=== PATIENT | female | born 1970 | race Caucasian/White ===

== ENCOUNTER 2016-09-04 16:02 | Emergency (ER) | payer OTHER ==
[2016-09-04 16:07] VITALS: RESP 16
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
[2016-09-04] MEDS ORDERED: ORPHENADRINE 30 MG/ML 2 ML VIAL IM STA (17:16)
[2016-09-04] MEDS ORDERED: KETOROLAC 60 MG/2 ML VIAL IM STA (17:16)
--- NOTE | 2016-09-04 18:03 | XR ---
Lumbar spine HISTORY: Trauma and pain 3 views of the lumbar spine, comparison to previous exam dated 16 March 2012 No comparisons Lumbar vertebral bodies show preserved height, alignment, and bone mineralization. There is loss of d isc height at L5-S1, L3-4, there is multilevel spondylosis. IMPRESSION: Degenerative disc disease. No acute osseous abnormalities evident.
--- NOTE | 2016-09-04 18:04 | XR ---
Thoracic spine HISTORY: Trauma and pain Correlation to prior exam there are degenerative thousand 12 No significant interval change. There is multilevel spondylosis. Thoracic vertebral bodies show prese rved height and alignment. Disc spaces are maintained IMPRESSION: No acute osseous abnormality. Stable degenerative disc changes.
[2016-09-04 18:35] VITALS: BP 139/71; PULSE 88; TEMP 97.8
== END 2016-09-04 18:00 | disposition home or self-care (01) ==
LOC: EC 16:02
DX: S16.1XXA Strain of muscle, fascia and tendon at neck level, initial encounter (principal); S39.012A Strain of muscle, fascia and tendon of lower back, initial encounter; F41.9 Anxiety disorder, unspecified; M51.36 Other intervertebral disc degeneration, lumbar region; Z88.8 Allergy status to other drugs, medicaments and biological substances; Z79.899 Other long term (current) drug therapy; V49.40XA Driver injured in collision with unspecified motor vehicles in traffic accident, initial encounter
CPT/HCPCS: 99284; 96372 ×2; 72070; 72100; 72125; 70450; J2360; J1885

== ENCOUNTER 2016-11-05 08:42 | Emergency (ER) | payer OTHER ==
[2016-11-05] MEDS ORDERED: KETOROLAC 30 MG/ML 1 ML VIAL IVP STA (09:00)
[2016-11-05] MEDS ORDERED: SODIUM CHLORIDE 0.9% 1,000 ML IV STA (09:00)
--- NOTE | 2016-11-05 09:03 | ED ---
Abdominal Pain HPI - General Chief Complaint: Abdominal Pain Stated Complaint: abdominal pain Time Seen by Provider: 11/05/16 08:55 Source: patient, RN notes reviewed Mode of arrival: ambulatory Limitations: no limitations - History of Present Illness Initial Comments: 46-year-old female presents to the emergency department with a chief complaint of left upper quadrant abdominal pain. Patient states that she has had this stabbing pain to the left upper quadrant for the last few days. Patient states that it hurts if she bends over. Patient states his been no nausea or vomiting. Patient states there is no radiation of the pain. Patient denies any changes in urination. Patient denies her having the pain before. Patient states just a stabbing pain in one spot only. Patient states that it is not have any other quality. Patient states she was concerned because just did not seem to be changing so she thought that she should be evaluated. Patient denies any recent fever, chills, shortness of breath, chest pain, back pain, nausea vomiting, numbness or tingling, dysuria or hematuria, constipation or diarrhea, headaches or visual changes, or any other current symptoms. - Related Data Home Medications Medication Instructions Recorded Confirmed Ergocalciferol [Vitamin D2 50,000 unit PO Q28D 01/31/16 11/05/16 (DRISDOL)] Cetirizine HCl [Zyrtec] 10 mg PO DAILY 11/05/16 11/05/16 Clarithromycin [Biaxin] 500 mg PO BID 11/05/16 11/05/16 Promethazine/Dextromethorphan 5 ml PO BID PRN 11/05/16 11/05/16 [Phenergan DM Syrup] Ranitidine HCl [Zantac] 150 mg PO BID 11/05/16 11/05/16 Previous Rx's Medication Instructions Recorded Ibuprofen [Motrin] 600 mg PO Q6HR PRN #20 tab 11/05/16 Allergies Allergy/AdvReac Type Severity Reaction Status Date / Time fluticasone propionate Allergy Rash/Hives Verified 11/05/16 09:03 [From Advair Diskus] salmeterol xinafoate Allergy Rash/Hives Verified 11/05/16 09:03 [From Advair Diskus] albuterol sulfate AdvReac Passed Out Verified 11/05/16 09:03 [From Ventolin HFA] Review of Systems ROS Statement: Those systems with pertinent positive or pertinent negative responses have been documented in the HPI. ROS Other: All systems not noted in ROS Statement are negative. Past Medical History Past Medical History: Chest Pain / Angina Additional Past Medical History / Comment(s): kidney stones History of Any Multi-Drug Resistant Organisms: None Reported Past Surgical History: Appendectomy, Hysterectomy, Tonsillectomy Past Anesthesia/Blood Transfusion Reactions: No Reported Reaction Past Psychological History: Anxiety Smoking Status: Never smoker Past Alcohol Use History: Rare Past Drug Use History: None Reported General Exam - General Exam Comments Initial Comments: General: The patient is awake and alert, in no distress, and does not appear acutely ill. Eye: Pupils are equal, round and reactive to light, extra-ocular movements are intact; there is normal conjunctiva bilaterally. No signs of icterus. Ears, nose, mouth and throat: There are moist mucous membranes and no oral lesions. Neck: The neck is supple, there is no tenderness. Cardiovascular: There is a regular rate and rhythm. No murmur, rub or gallop is appreciated. Respiratory: Lungs are clear to auscultation, respirations are non-labored, breath sounds are equal. No wheezes, stridor, rales, or rhonchi. Gastrointestinal: Soft, non-distended, 1.10 and her area to the left upper quadrant of the abdomen without masses or organomegaly noted. There is no rebound or guarding present. No CVA tenderness. Bowel sounds are unremarkable. Back: There is no tenderness to palpation in the midline. There is no obvious deformity. No rashes noted. Musculoskeletal: Normal ROM, no tenderness, There is no pedal edema. There is no calf tenderness or swelling. Sensation intact. Pulses equal bilaterally 2+. Neurological: CN II-XII intact, There are no obvious motor or sensory deficits. Coordination appears grossly intact. Speech is normal. Skin: Skin is warm and dry and no rashes or lesions are noted. Psychiatric: Cooperative, appropriate mood & affect, normal judgment. Limitations: no limitations Course Vital Signs 11/05/16 08:52 Temperature 98.9 F Pulse Rate 86 Respiratory 16 Rate Blood Pressure 124/70 O2 Sat by Pulse 97 Oximetry Medical Decision Making - Medical Decision Making 46-year-old female presents the emergency department chief complaint of left upper quadrant abdominal pain. At this time patient's blood work is reviewed and shows no white count patient's x-rays normal. At this time patient was reexamined and she states she's been much better with the medication. We discussed the possible etiologies for her abdominal pain. This time due to the patient's blood work and soft nondistended nontender abdomen on reevaluation we discussed that she needs continue to watch this. We discussed follow-up with her doctor we discussed return parameters. We did discuss possible etiologies for this as well as expected outcomes. Patient stated that she understood all her questions have been answered. She will be discharged. - Lab Data Result diagrams: 11/05/16 09:25 11/05/16 09:25 Lab Results 11/05/16 11/05/16 11/05/16 Range/Units 09:25 09:25 09:25 WBC 6.8 (3.8-10.6) k/uL RBC 4.03 (3.80-5.40) m/uL Hgb 12.4 (11.4-16.0) gm/dL Hct 36.1 (34.0-46.0) % MCV 89.5 (80.0-100.0) fL MCH 30.7 (25.0-35.0) pg MCHC 34.3 (31.0-37.0) g/dL RDW 14.9 (11.5-15.5) % Plt Count 209 (150-450) k/uL Neutrophils % 68 % Lymphocytes % 23 % Monocytes % 5 % Eosinophils % 1 % Basophils % 1 % Neutrophils # 4.6 (1.3-7.7) k/uL Lymphocytes # 1.6 (1.0-4.8) k/uL Monocytes # 0.3 (0-1.0) k/uL Eosinophils # 0.1 (0-0.7) k/uL Basophils # 0.0 (0-0.2) k/uL Sodium 143 (137-145) mmol/L Potassium 4.3 (3.5-5.1) mmol/L Chloride 106 (98-107) mmol/L Carbon Dioxide 25 (22-30) mmol/L Anion Gap 12 mmol/L BUN 11 (7-17) mg/dL Creatinine 0.69 (0.52-1.04) mg/dL Est GFR (MDRD) Af Amer >60 (>60 ml/min/1.73 sqM) Est GFR (MDRD) Non-Af >60 (>60 ml/min/1.73 sqM) Glucose 107 H (74-99) mg/dL Calcium 8.8 (8.4-10.2) mg/dL Total Bilirubin 0.5 (0.2-1.3) mg/dL AST 27 (14-36) U/L ALT 39 (9-52) U/L Alkaline Phosphatase 85 (38-126) U/L Total Protein 7.1 (6.3-8.2) g/dL Albumin 3.8 (3.5-5.0) g/dL Amylase 51 (30-110) U/L Lipase 80 (23-300) U/L Urine Color Yellow Urine Appearance Clear (Clear) Urine pH 5.5 (5.0-8.0) Ur Specific [place] 1.015 (1.001-1.035) Urine Protein Negative (Negative) Urine Glucose (UA) Negative (Negative) Urine Ketones Negative (Negative) Urine Blood Negative (Negative) Urine Nitrate Negative (Negative) Urine Bilirubin Negative (Negative) Urine Urobilinogen <2.0 (<2.0) mg/dL Ur Leukocyte Esterase Negative (Negative) - Radiology Data Radiology results: report reviewed, image reviewed Disposition Clinical Impression: Abdominal pain, left upper quadrant Disposition: HOME SELF-CARE Condition: Stable Instructions: Abdominal Pain (ED) Additional Instructions: Please use medication as discussed. Please follow up with family doctor if symptoms have not improved over the next two days. Please return to the emergency room if your symptoms increase or worsen or for any other concerns. Prescriptions: Ibuprofen [Motrin] 600 mg PO Q6HR PRN #20 tab PRN Reason: Pain Referrals: Krish Navas MD [STAFF PHYSICIAN] - 1-2 days Time of Disposition: 10:08
[2016-11-05 09:36] LABS: Basophils % (A) 1 %; CHCM 33.7; Eosinophils # (A) 0.1 k/uL (0-0.7); Eosinophils % (A) 1 %; HCT 36.1 % (34.0-46.0); HDW 3.12; HGB 12.4 gm/dL (11.4-16.0); Luc # (Auto) 0.15; Luc % (Auto) 2; Lymphocytes # (A) 1.6 k/uL (1.0-4.8); Lymphocytes % (A) 23 %; MCH 30.7 pg (25.0-35.0); MCHC 34.3 g/dL (31.0-37.0); MCV 89.5 fL (80.0-100.0); Mean Platelet Volume 8.4; Monocytes # (A) 0.3 k/uL (0-1.0); Monocytes % (A) 5 %; Neutrophils # (A) 4.6 k/uL (1.3-7.7); Neutrophils % (A) 68 %; RBC 4.03 m/uL (3.80-5.40); RDW 14.9 % (11.5-15.5); WBC 6.8 k/uL (3.8-10.6); WBC (Perox) 7.03
[2016-11-05 09:41] LABS: Appearance,Urine Clear (Clear); Bilirubin,Urine Negative (Negative); Glucose,Urine (UA) Negative (Negative); Ketones,Urine Negative (Negative); Leukocyte Esterase,Urine Negative (Negative); Nitrite,Urine Negative (Negative); PH, Urine 5.5 (5.0-8.0); Protein,Urine Negative (Negative); Specific Gravity,Urine 1.015 (1.001-1.035); UA Billing (MACRO vs. MICRO) CHEM; Urobilinogen,Urine <2.0 mg/dL (<2.0)
--- NOTE | 2016-11-05 09:48 | XR ---
EXAMINATION TYPE: XR abdomen 2V DATE OF EXAM: 11/05/2016 9:40 AM COMPARISON: 10/12/2013 HISTORY: Left-sided upper and lower quadrant pain TECHNIQUE: One view abdominal series FINDINGS: The osseous structures are intact. The bowel gas pattern is nonspecific. Lung bases are clear. Arth ropathy of the hip joints noted. IMPRESSION: 1. Nonspecific abdomen.
[2016-11-05 09:51] LABS: ALT 39 U/L (9-52); AST 27 U/L (14-36); Alkaline Phosphatase 85 U/L (38-126); Amylase 51 U/L (30-110); Anion Gap 12 mmol/L; Blood Urea Nitrogen 11 mg/dL (7-17); Calcium 8.8 mg/dL (8.4-10.2); Carbon Dioxide 25 mmol/L (22-30); Chloride 106 mmol/L (98-107); Glucose 107 mg/dL (74-99); Non-African American GFR(MDRD) >60 (>60 ml/min/1.73 sqM); Potassium 4.3 mmol/L (3.5-5.1); Sodium 143 mmol/L (137-145); Total Bilirubin 0.5 mg/dL (0.2-1.3); Total Protein 7.1 g/dL (6.3-8.2)
[2016-11-05 10:26] VITALS: BP 138/58; PULSE 75; RESP 18; TEMP 99.5
== END 2016-11-05 10:23 | disposition home or self-care (01) ==
LOC: EC 08:42
DX: R10.12 Left upper quadrant pain (principal); Z87.442 Personal history of urinary calculi; Z79.899 Other long term (current) drug therapy; Z88.8 Allergy status to other drugs, medicaments and biological substances
CPT/HCPCS: 99284 ×2; 96374 ×2; 96361 ×2; 36415; 80053; 82150; 83690; 85025; 81003; 74020; J1885

== ENCOUNTER 2017-03-16 22:51 | Emergency (ER) | payer OTHER ==
[2017-03-16 22:58] VITALS: BP 145/84; PULSE 92; RESP 18; TEMP 98.5
--- NOTE | 2017-03-16 23:10 | ED ---
ENT HPI - General Chief complaint: ENT Stated complaint: Sore throat, bug bite Time Seen by Provider: 03/16/17 23:00 Source: patient, RN notes reviewed Mode of arrival: ambulatory Limitations: no limitations - History of Present Illness Initial comments: 47-year-old female presents emergency Department with chief complaint sore throat, bump on her right thigh region. Patient states her sore throat started 4 days ago states that she's had some hot cold flashes no known fever. Patient was seen by PCP placed on amoxicillin but she did not know why. Patient denies any ear pain but states pain radiates up towards her years from her throat. Denies any difficulty swallowing denies cough, chest congestion, sinus congestion. Patient states that she felt a small bump on her right posterior thigh region started one to days ago states that it she scratched it felt like a pimple and now states that his more swollen. Patient has no history of MRSA. - Related Data Home Medications Medication Instructions Recorded Confirmed Ergocalciferol [Vitamin D2 50,000 unit PO Q28D 01/31/16 03/16/17 (DRISDOL)] Clarithromycin [Biaxin] 500 mg PO BID 11/05/16 03/16/17 Ranitidine HCl [Zantac] 150 mg PO BID 11/05/16 03/16/17 Previous Rx's Medication Instructions Recorded Cephalexin [Keflex] 500 mg PO Q6HR #40 cap 03/16/17 Allergies Allergy/AdvReac Type Severity Reaction Status Date / Time fluticasone propionate Allergy Rash/Hives Verified 03/16/17 22:57 [From Advair Diskus] salmeterol xinafoate Allergy Rash/Hives Verified 03/16/17 22:57 [From Advair Diskus] albuterol sulfate AdvReac Passed Out Verified 03/16/17 22:57 [From Ventolin HFA] Review of Systems ROS Statement: Those systems with pertinent positive or pertinent negative responses have been documented in the HPI. ROS Other: All systems not noted in ROS Statement are negative. Past Medical History Past Medical History: Chest Pain / Angina Additional Past Medical History / Comment(s): kidney stones History of Any Multi-Drug Resistant Organisms: None Reported Past Surgical History: Appendectomy, Hysterectomy, Tonsillectomy Past Anesthesia/Blood Transfusion Reactions: No Reported Reaction Past Psychological History: Anxiety Smoking Status: Never smoker Past Alcohol Use History: Rare Past Drug Use History: None Reported General Exam Limitations: no limitations General appearance: alert, in no apparent distress Head exam: Present: atraumatic, normocephalic, normal inspection Eye exam: Present: normal appearance, PERRL, EOMI. Absent: scleral icterus, conjunctival injection, periorbital swelling ENT exam: Present: mucous membranes moist, TM's normal bilaterally, normal external ear exam. Absent: normal exam, normal oropharynx (Erythematous posterior pharynx, tonsillectomy) Neck exam: Present: normal inspection, full ROM. Absent: tenderness, meningismus, lymphadenopathy Respiratory exam: Present: normal lung sounds bilaterally. Absent: respiratory distress, wheezes, rales, rhonchi, stridor Cardiovascular Exam: Present: regular rate, normal rhythm, normal heart sounds. Absent: systolic murmur, diastolic murmur, rubs, gallop, clicks Skin exam: Present: warm, dry, intact, normal color, other (Right posterior thigh there is a 170 area of erythema with central open lesion). Absent: rash Course Vital Signs 03/16/17 22:55 Temperature 98.5 F Pulse Rate 92 Respiratory 18 Rate Blood Pressure 145/84 O2 Sat by Pulse 96 Oximetry Medical Decision Making - Medical Decision Making 47-year-old female presented for sore throat, right leg lesion. Patient appears not infected wound she'll be placed on Keflex as this will cover for her possible strep infection. Patient agrees this plan and will be discharged. Disposition Clinical Impression: Acute viral pharyngitis, Infected wound Disposition: HOME SELF-CARE Condition: Stable Instructions: Pharyngitis (ED) Additional Instructions: Please return to the Emergency Department if symptoms worsen or any other concerns. Prescriptions: Cephalexin [Keflex] 500 mg PO Q6HR #40 cap Referrals: Dleia Valero MD [Primary Care Provider] - 1-2 days Time of Disposition: 23:10
== END 2017-03-16 23:29 | disposition home or self-care (01) ==
LOC: EC 22:51
DX: J02.8 Acute pharyngitis due to other specified organisms (principal); S71.101A Unspecified open wound, right thigh, initial encounter; Z79.899 Other long term (current) drug therapy; Z88.8 Allergy status to other drugs, medicaments and biological substances; X58.XXXA Exposure to other specified factors, initial encounter
CPT/HCPCS: 99282

== ENCOUNTER 2017-09-05 14:44 | Emergency (ER) | payer OTHER ==
[2017-09-05] MEDS ORDERED: methylPREDNISolone SOD SUCCI 125 MG/2 ML VIAL IV STA (15:01)
[2017-09-05] MEDS ORDERED: ACETAMINOPHEN TAB 500 MG TAB PO STA (15:01)
[2017-09-05] MEDS ORDERED: PROMETHAZ-COD 6.25-10 MG/5 ML 5 ML CUP PO STA (15:21)
[2017-09-05] MEDS ORDERED: SODIUM CHLORIDE 0.9% 1,000 ML IV ONE (15:22)
--- NOTE | 2017-09-05 15:25 | ED ---
URI HPI - General Chief Complaint: Upper Respiratory Infection Stated Complaint: SOB Time Seen by Provider: 09/05/17 14:52 Source: patient, RN notes reviewed, old records reviewed Mode of arrival: ambulatory Limitations: no limitations - History of Present Illness Initial Comments: This is a 47-year-old female presents emergency Department chief complaint of upper respiratory congestion and significant cough the past 2 days. She saw her primary care provider. Patient was started on Levaquin, and steroids. She reports that her symptoms continue to persist that she called the primary care provider. They told her to come here. She reports that she feels very short of breath with walking short distances. She reports she is ALLERGIC to all types of breathing treatments. She denies any recent fever or chills. She reports that he has no abdominal pain, nausea or vomiting. She denies any specific chest pain but occasionally report some numbness and tingling down her left arm. She denies any other symptoms including headache, vision changes, down pain, nausea, vomiting, changes in bowel habits. - Related Data Home Medications Medication Instructions Recorded Confirmed Citalopram Hydrobromide [CeleXA] 20 mg PO HS 09/05/17 09/05/17 LORazepam [Ativan] 0.5 mg PO DAILY 09/05/17 09/05/17 Levofloxacin [Levaquin] 500 mg PO DAILY 09/05/17 09/05/17 predniSONE See Taper PO DIRECTED 09/05/17 09/05/17 Previous Rx's Medication Instructions Recorded Hjev-Sccy-Nwn 6.25-5-10Mg/5Ml 5 ml PO TID #100 ml 09/05/17 [Phenergan VC with Codeine] predniSONE 50 mg PO DAILY #5 tablet 09/05/17 Allergies Allergy/AdvReac Type Severity Reaction Status Date / Time fluticasone propionate Allergy Rash/Hives Verified 09/05/17 15:25 [From Advair Diskus] salmeterol xinafoate Allergy Rash/Hives Verified 09/05/17 15:25 [From Advair Diskus] albuterol sulfate AdvReac Passed Out Verified 09/05/17 15:25 [From Ventolin HFA] Review of Systems ROS Statement: Those systems with pertinent positive or pertinent negative responses have been documented in the HPI. ROS Other: All systems not noted in ROS Statement are negative. Past Medical History Past Medical History: Chest Pain / Angina Additional Past Medical History / Comment(s): kidney stones History of Any Multi-Drug Resistant Organisms: None Reported Past Surgical History: Appendectomy, Hysterectomy, Tonsillectomy Past Anesthesia/Blood Transfusion Reactions: No Reported Reaction Past Psychological History: Anxiety Smoking Status: Never smoker Past Alcohol Use History: Rare Past Drug Use History: None Reported General Exam - General Exam Comments Initial Comments: His is a 47-year-old female. No distress. Limitations: no limitations General appearance: alert, in no apparent distress Head exam: Present: atraumatic, normocephalic, normal inspection Eye exam: Present: normal appearance, PERRL, EOMI. Absent: scleral icterus, conjunctival injection, periorbital swelling ENT exam: Present: normal exam, mucous membranes moist Neck exam: Present: normal inspection. Absent: tenderness, meningismus, lymphadenopathy Respiratory exam: Present: normal lung sounds bilaterally, other (Patient has significant dry cough.). Absent: respiratory distress, wheezes, rales, rhonchi , stridor Cardiovascular Exam: Present: regular rate, normal rhythm, normal heart sounds. Absent: systolic murmur, diastolic murmur, rubs, gallop, clicks GI/Abdominal exam: Present: soft, normal bowel sounds. Absent: distended, tenderness, guarding, rebound, rigid Extremities exam: Present: normal inspection, full ROM, normal capillary refill. Absent: tenderness, pedal edema, joint swelling, calf tenderness Back exam: Present: normal inspection Neurological exam: Present: alert, oriented X3, CN II-XII intact Psychiatric exam: Present: normal affect, normal mood Course Vital Signs 09/05/17 09/05/17 09/05/17 14:46 16:05 17:59 Temperature 97.7 F 98.0 F Pulse Rate 97 84 84 Respiratory 18 18 18 Rate Blood Pressure 151/74 129/80 132/81 O2 Sat by Pulse 99 93 L 94 L Oximetry Medical Decision Making - Medical Decision Making This is a 47-year-old female presents emergency Department chief complaint of upper respiratory congestion the past 2 days. She saw her primary care provider yesterday. Patient was started on Levaquin, and steroids. She reports that her symptoms continue to persist that she called the primary care provider. They told her to come here. She reports that she feels very short of breath with walking short distances. She reports she is ALLERGIC to all types of breathing treatments. Pt given IV fluids, labs obtained. CXR is reviewed and normal. No significant wheezing, however latoya has very persistent dry hacking cough. Mild leukocytosis noted. Patient Given IV rocpehin and advised to continue levaquin. Discharged with cough syrup, and increased steroids. Discussed follow up with PCP. Patient EKG and troponin are normal, if there was cardiac related symptoms likely would have been positive at this time due to length of pt symptoms. Patient agrees for treatment planand will comply. - Lab Data Result diagrams: 09/05/17 15:48 09/05/17 15:48 Lab Results 09/05/17 09/05/17 09/05/17 Range/Units 15:48 15:48 15:48 WBC 13.8 H (3.8-10.6) k/uL RBC 4.13 (3.80-5.40) m/uL Hgb 12.2 (11.4-16.0) gm/dL Hct 37.9 (34.0-46.0) % MCV 91.6 (80.0-100.0) fL MCH 29.6 (25.0-35.0) pg MCHC 32.3 (31.0-37.0) g/dL RDW 15.8 H (11.5-15.5) % Plt Count 245 (150-450) k/uL Neutrophils % 77 % Lymphocytes % 16 % Monocytes % 5 % Eosinophils % 1 % Basophils % 0 % Neutrophils # 10.6 H (1.3-7.7) k/uL Lymphocytes # 2.3 (1.0-4.8) k/uL Monocytes # 0.7 (0-1.0) k/uL Eosinophils # 0.1 (0-0.7) k/uL Basophils # 0.1 (0-0.2) k/uL Sodium 142 (137-145) mmol/L Potassium 4.3 (3.5-5.1) mmol/L Chloride 107 (98-107) mmol/L Carbon Dioxide 24 (22-30) mmol/L Anion Gap 11 mmol/L BUN 13 (7-17) mg/dL Creatinine 0.84 (0.52-1.04) mg/dL Est GFR (MDRD) Af Amer >60 (>60 ml/min/1.73 sqM) Est GFR (MDRD) Non-Af >60 (>60 ml/min/1.73 sqM) Glucose 121 H (74-99) mg/dL Calcium 9.5 (8.4-10.2) mg/dL Troponin I <0.012 (0.000-0.034) ng/mL Influenza Type A RNA (Not Detectd) Influenza Type B (PCR) (Not Detectd) 09/05/17 Range/Units 16:20 WBC (3.8-10.6) k/uL RBC (3.80-5.40) m/uL Hgb (11.4-16.0) gm/dL Hct (34.0-46.0) % MCV (80.0-100.0) fL MCH (25.0-35.0) pg MCHC (31.0-37.0) g/dL RDW (11.5-15.5) % Plt Count (150-450) k/uL Neutrophils % % Lymphocytes % % Monocytes % % Eosinophils % % Basophils % % Neutrophils # (1.3-7.7) k/uL Lymphocytes # (1.0-4.8) k/uL Monocytes # (0-1.0) k/uL Eosinophils # (0-0.7) k/uL Basophils # (0-0.2) k/uL Sodium (137-145) mmol/L Potassium (3.5-5.1) mmol/L Chloride (98-107) mmol/L Carbon Dioxide (22-30) mmol/L Anion Gap mmol/L BUN (7-17) mg/dL Creatinine (0.52-1.04) mg/dL Est GFR (MDRD) Af Amer (>60 ml/min/1.73 sqM) Est GFR (MDRD) Non-Af (>60 ml/min/1.73 sqM) Glucose (74-99) mg/dL Calcium (8.4-10.2) mg/dL Troponin I (0.000-0.034) ng/mL Influenza Type A RNA Not Detected (Not Detectd) Influenza Type B (PCR) Not Detected (Not Detectd) 09/05/17 18:21 EKG shows sinus rhythm. Ventricular rate of 99 bpm. IL interval 140 ms. QRS duration 82 ms. QT QTc is 356/[address] elevation or T wave inversion. No to return ventricular arrhythmias. - Radiology Data Radiology results: report reviewed Chest x-ray was reviewed and negative for any acute process. Disposition Clinical Impression: Bronchitis Disposition: HOME SELF-CARE Condition: Good Instructions: Acute Bronchitis (ED) Additional Instructions: Patient advised to follow-up with primary care provider. Return to the emergency department if any alarming signs or symptoms occur. Patient should use the steroids and continue your antibiotics. Prescriptions: predniSONE 50 mg PO DAILY #5 tablet Jtoy-Qtdf-Xgj 6.25-5-10Mg/5Ml [Phenergan VC with Codeine] 5 ml PO TID #100 ml Referrals: Delia Valero MD [Primary Care Provider] - 1-2 days Time of Disposition: 17:26
--- NOTE | 2017-09-05 15:54 | XR ---
EXAMINATION TYPE: XR chest 2V DATE OF EXAM: 09/05/2017 COMPARISON: 05/13/2016 TECHNIQUE: PA and lateral views submitted. HISTORY: Cough and congestion FINDINGS: The lungs are clear and there is no pneumothorax, pleural effusion, or focal pneumonia. Hypertrophi c and degenerative change of the spine. IMPRESSION: 1. No acute process.
[2017-09-05 15:56] LABS: Basophils # (A) 0.1 k/uL (0-0.2); Basophils % (A) 0 %; Eosinophils # (A) 0.1 k/uL (0-0.7); Eosinophils % (A) 1 %; HCT 37.9 % (34.0-46.0); HGB 12.2 gm/dL (11.4-16.0); Lymphocytes # (A) 2.3 k/uL (1.0-4.8); Lymphocytes % (A) 16 %; MCH 29.6 pg (25.0-35.0); MCHC 32.3 g/dL (31.0-37.0); MCV 91.6 fL (80.0-100.0); Mean Platelet Volume 7.8; Monocytes # (A) 0.7 k/uL (0-1.0); Monocytes % (A) 5 %; Neutrophils # (A) 10.6 k/uL (1.3-7.7); Neutrophils % (A) 77 %; Platelet Count 245 k/uL (150-450); RBC 4.13 m/uL (3.80-5.40); RDW 15.8 % (11.5-15.5); WBC 13.8 k/uL (3.8-10.6)
[2017-09-05 16:05] LABS: Anion Gap 11 mmol/L; Blood Urea Nitrogen 13 mg/dL (7-17); Calcium 9.5 mg/dL (8.4-10.2); Carbon Dioxide 24 mmol/L (22-30); Chloride 107 mmol/L (98-107); Glucose 121 mg/dL (74-99); Potassium 4.3 mmol/L (3.5-5.1); Sodium 142 mmol/L (137-145)
[2017-09-05 16:42] VITALS: PULSE 84; RESP 18
[2017-09-05] MEDS ORDERED: cefTRIAXone IN SWFI 1,000 MG/10 ML SYRINGE IVP STA (17:27)
[2017-09-05 18:00] VITALS: BP 132/81; TEMP 98
== END 2017-09-05 18:18 | disposition home or self-care (01) ==
LOC: EC 14:44
DX: J40 Bronchitis, not specified as acute or chronic (principal); F41.9 Anxiety disorder, unspecified; Z88.8 Allergy status to other drugs, medicaments and biological substances; Z79.52 Long term (current) use of systemic steroids; Z79.899 Other long term (current) drug therapy
CPT/HCPCS: 99284; 96374; 96375; 96361 ×2; 36415; 93005; 80048; 84484; 85025; 87502; 71046; J2930; J0696

== ENCOUNTER → 2017-10-31 | Outpatient (CLI) | payer OTHER ==
--- NOTE | 2017-10-31 08:24 | US ---
EXAMINATION TYPE: US abdomen complete DATE OF EXAM: 10/31/2017 COMPARISON: CT CLINICAL HISTORY: R10.12 left upper quad pain; patient stated has generalized abdominal pain after me als; exam is technically limited due to patient body habitus at 262lbs, HT 5'7; on medication for anx iety EXAM MEASUREMENTS: Liver Length: 24.2 cm Gallbladder Wall: 0.2 cm CBD: 0.3 cm Spleen: 12.4 cm Right Kidney: 12.3 x 6.9 x 4.4 cm Left Kidney: 11.3 x 5.1 x 5.4 cm Pancreas: Tail obscured by overlying bowel gas Liver: fatty as is hyperechoic to right renal cortex Gallbladder: wnl Evidence for sonographic Cullen's sign: No CBD: wnl Spleen: wnl; accessory spleen noted superiorly on images #68 and #70. Right Kidney: No hydronephrosis or masses seen Left Kidney: No hydronephrosis or masses seen Upper IVC: wnl Abd Aorta: wnl Visualized liver is heterogeneously hyperechoic in appearance. Evaluation for focal masses is subopti mal due to the heterogeneity. IMPRESSION: Probable fatty infiltration of liver noted. No significant acute finding is seen to accou nt for patient's symptoms.
== END | disposition home or self-care (01) ==
LOC: RADUSWWP 06:52
PROVIDERS: ATTEND Internal Medicine
DX: R10.12 Left upper quadrant pain (principal)
CPT/HCPCS: 76700

== ENCOUNTER 2017-12-29 14:28 | Emergency (ER) | payer OTHER ==
[2017-12-29] MEDS ORDERED: KETOROLAC 30 MG/ML 1 ML VIAL IM STA (15:46)
--- NOTE | 2017-12-29 15:51 | ED ---
General Adult HPI - General Chief complaint: Upper Respiratory Infection Stated complaint: Hurts to breathe Time Seen by Provider: 12/29/17 15:27 Source: patient Mode of arrival: ambulatory Limitations: no limitations - History of Present Illness Initial comments: 47-year-old female patient presents to the emergency department today for complaints of back pain and upper respiratory symptoms. Patient states that for the last week she has been having pain to her entire back from her neck all the way down to her buttocks. She states that the pain increases when she moves , coughs, or takes a deep breath. She states that the pain is been worsening despite use of ibuprofen. She states that she feels like she has to cough but can't because it hurts so much. She states that she does have a sore throat with nasal congestion. She denies any shortness of breath, chest pain, fever, chills, nausea, vomiting, sweats, dizziness, or weakness. Denies any history of back pain. She denies any radiation of the pain down her legs. Denies any numbness or tingling. Denies any saddle anesthesia. Denies any loss of bowel or bladder control. Denies any injuries or increase in physical activity. She denies any recent travel or long car rides. Denies any use of hormonal contraceptives. Patient denies any recent rash, abdominal pain, diarrhea, constipation, numbness, tingling, hematuria, dysuria, urinary urgency, urinary frequency, headache, visual changes, or any other complaints. - Related Data Home Medications Medication Instructions Recorded Confirmed Citalopram Hydrobromide [CeleXA] 20 mg PO HS 09/05/17 09/05/17 LORazepam [Ativan] 0.5 mg PO DAILY 09/05/17 09/05/17 Previous Rx's Medication Instructions Recorded Cyclobenzaprine [Flexeril] 10 mg PO TID #15 tab 12/29/17 Ibuprofen [Motrin] 600 mg PO Q8HR PRN #30 tab 12/29/17 Allergies Allergy/AdvReac Type Severity Reaction Status Date / Time amoxicillin Allergy Unknown Verified 12/29/17 15:17 fluticasone propionate Allergy Rash/Hives Verified 12/29/17 15:17 [From Advair Diskus] salmeterol xinafoate Allergy Rash/Hives Verified 12/29/17 15:17 [From Advair Diskus] albuterol sulfate AdvReac Passed Out Verified 12/29/17 15:17 [From Ventolin HFA] Review of Systems ROS Statement: Those systems with pertinent positive or pertinent negative responses have been documented in the HPI. ROS Other: All systems not noted in ROS Statement are negative. Past Medical History Past Medical History: Chest Pain / Angina Additional Past Medical History / Comment(s): kidney stones History of Any Multi-Drug Resistant Organisms: None Reported Past Surgical History: Appendectomy, Hysterectomy, Tonsillectomy Past Anesthesia/Blood Transfusion Reactions: No Reported Reaction Past Psychological History: Anxiety Smoking Status: Never smoker Past Alcohol Use History: Rare Past Drug Use History: None Reported General Exam Limitations: no limitations General appearance: alert, in no apparent distress, other (This is a well- developed, well-nourished adult female patient in no acute distress. Vital signs upon presentation are temperature 98.3F, pulse 94, respirations 18, blood pressure 118/71, pulse ox 96% on room air.) Eye exam: Present: normal appearance, PERRL, EOMI. Absent: scleral icterus, conjunctival injection, periorbital swelling ENT exam: Present: normal exam, normal oropharynx, mucous membranes moist Neck exam: Present: normal inspection. Absent: tenderness, meningismus, lymphadenopathy Respiratory exam: Present: normal lung sounds bilaterally. Absent: respiratory distress, wheezes, rales, rhonchi, stridor Cardiovascular Exam: Present: regular rate, normal rhythm, normal heart sounds. Absent: systolic murmur, diastolic murmur, rubs, gallop, clicks GI/Abdominal exam: Present: soft, normal bowel sounds. Absent: distended, tenderness, guarding, rebound, rigid Back exam: Present: normal inspection. Absent: tenderness Neurological exam: Present: alert, oriented X3, CN II-XII intact Psychiatric exam: Present: normal affect, normal mood Skin exam: Present: warm, dry, intact, normal color. Absent: rash Course Vital Signs 12/29/17 12/29/17 15:13 15:26 Temperature 98.3 F Pulse Rate 94 Respiratory 18 18 Rate Blood Pressure 118/71 O2 Sat by Pulse 96 Oximetry EKG Findings - EKG Comments: EKG Findings:: EKG obtained at 1715 shows normal sinus rhythm with a ventricular rate of 78, DE interval 150, QRS duration 88, QT 408, QTC 465. No evidence of ST elevation or depression. Medical Decision Making - Medical Decision Making 47-year-old female patient presented to the emergency department today for complaints of back pain. She reported increase in the pain with movement or deep breathing. Patient is also reporting upper respiratory symptoms including cough, sore throat, and nasal congestion. Physical examination is unremarkable. The back is nontender to palpation. Patient is neurologically intact. Vital signs are stable. EKG shows normal sinus rhythm. Chest x-ray showed no acute cardiopulmonary process. I did discuss findings with the patient and informed her symptoms are most likely musculoskeletal in nature. We will trial anti-inflammatory and Flexeril. She is instructed to follow-up with her primary care physician for recheck as soon as possible. Return parameters were discussed in detail. She verbalizes understanding and agrees with this plan. - Radiology Data Radiology results: report reviewed, image reviewed Two-view x-ray of the chest shows no focal airspace opacity, pleural effusion, or pneumothorax seen. The cardiac silhouette size is within normal limits. The osseous structures are intact. Impression by Dr. Martinez shows no acute cardiopulmonary process. Disposition Clinical Impression: Back pain, Upper respiratory infection Disposition: HOME SELF-CARE Condition: Good Instructions: Upper Respiratory Infection (ED), Back Pain (ED) Additional Instructions: Take medications as directed. Follow-up with your primary care physician for recheck as soon as possible. Return here immediately for any new, worsening, or concerning symptoms. Prescriptions: Cyclobenzaprine [Flexeril] 10 mg PO TID #15 tab Ibuprofen [Motrin] 600 mg PO Q8HR PRN #30 tab PRN Reason: Pain Is patient prescribed a controlled substance at d/c from ED?: No Referrals: Delia Valero MD [Primary Care Provider] - 1-2 days Time of Disposition: 17:34
--- NOTE | 2017-12-29 16:35 | XR ---
EXAMINATION TYPE: XR chest 2V DATE OF EXAM: 12/29/2017 COMPARISON: September 05, 2017 HISTORY: Shortness of breath TECHNIQUE: Frontal and lateral views of the chest are obtained. FINDINGS: There is no focal air space opacity, pleural effusion, or pneumothorax seen. The cardiac silhouette size is within normal limits. The osseous structures are intact. IMPRESSION: No acute cardiopulmonary process.
[2017-12-29 17:54] VITALS: BP 126/83; PULSE 73; RESP 16; TEMP 99.2
== END 2017-12-29 17:53 | disposition home or self-care (01) ==
LOC: EC 14:28
DX: J06.9 Acute upper respiratory infection, unspecified (principal); M54.9 Dorsalgia, unspecified; F41.9 Anxiety disorder, unspecified; Z79.899 Other long term (current) drug therapy; Z88.0 Allergy status to penicillin; Z88.8 Allergy status to other drugs, medicaments and biological substances; Z90.89 Acquired absence of other organs
CPT/HCPCS: 99284; 96372; 93005; 71046; J1885

== ENCOUNTER 2018-01-07 12:25 | Emergency (ER) | payer OTHER ==
[2018-01-07 12:33] VITALS: BP 130/87; PULSE 98; RESP 18; TEMP 99.1
--- NOTE | 2018-01-07 12:43 | ED ---
Upper Extremity HPI - General Chief Complaint: Extremity Injury, Upper Stated Complaint: Right hand injury Time Seen by Provider: 01/07/18 12:38 Source: patient, RN notes reviewed Mode of arrival: ambulatory Limitations: no limitations - History of Present Illness Initial Comments: This is a 47-year-old female who presents to the emergency department with chief complaint of right hand injury. Patient states approximately 30 minutes prior to arrival she became angry and punched her closet door. She complains of pain in in the knuckles and along the lateral aspect of her right hand. Denies any other injuries or trauma. Denies numbness or tingling. Denies recent fevers or chills, shortness breath or chest pain, abdominal pain, nausea or vomiting, dizziness or headache. - Related Data Home Medications Medication Instructions Recorded Confirmed Citalopram Hydrobromide [CeleXA] 20 mg PO HS 09/05/17 09/05/17 LORazepam [Ativan] 0.5 mg PO DAILY 09/05/17 09/05/17 Previous Rx's Medication Instructions Recorded Cyclobenzaprine [Flexeril] 10 mg PO TID #15 tab 12/29/17 Ibuprofen [Motrin] 600 mg PO Q8HR PRN #30 tab 12/29/17 Allergies Allergy/AdvReac Type Severity Reaction Status Date / Time amoxicillin Allergy Unknown Verified 01/07/18 12:33 fluticasone propionate Allergy Rash/Hives Verified 01/07/18 12:33 [From Advair Diskus] salmeterol xinafoate Allergy Rash/Hives Verified 01/07/18 12:33 [From Advair Diskus] albuterol sulfate AdvReac Passed Out Verified 01/07/18 12:33 [From Ventolin HFA] Review of Systems ROS Statement: Those systems with pertinent positive or pertinent negative responses have been documented in the HPI. ROS Other: All systems not noted in ROS Statement are negative. Past Medical History Past Medical History: Chest Pain / Angina Additional Past Medical History / Comment(s): kidney stones History of Any Multi-Drug Resistant Organisms: None Reported Past Surgical History: Appendectomy, Hysterectomy, Tonsillectomy Past Anesthesia/Blood Transfusion Reactions: No Reported Reaction Past Psychological History: Anxiety Smoking Status: Never smoker Past Alcohol Use History: Rare Past Drug Use History: None Reported General Exam - General Exam Comments Initial Comments: General: Awake and alert, well-developed; in no apparent distress. Calm and cooperative. Daughter is at bedside. HEENT: Head atraumatic, normocephalic. Pupils are equal, round and reactive to light. Extraocular movements intact. Oropharynx moist without erythema or exudate. Neck: Supple. Normal ROM. Cardiovascular: Regular rate and rhythm. No murmurs, rubs or gallops. Chest symmetrical. Respiratory: Lungs clear to auscultation bilaterally. No wheezes, rales or rhonchi. Normal respiratory effort with no use of accessory muscles. Musculoskeletal: Normal range of motion of the right hand. No significant swelling or ecchymosis noted. There is tenderness along the fourth and fifth metacarpals and MCP joints of the right hand. Sensation is intact. Radial pulses are 2+ equal and palpable bilaterally. Skin: [place], warm and dry without rashes or lesions. Neurological: Alert and oriented x3. CN II-XII grossly intact. Speech is fluent and answers are appropriate. No focal neuro deficits. Psychiatric: Normal mood and affect. No overt signs of depression or anxiety noted. Limitations: no limitations Course Vital Signs 01/07/18 12:31 Temperature 99.1 F Pulse Rate 98 Respiratory 18 Rate Blood Pressure 130/87 O2 Sat by Pulse 96 Oximetry Medical Decision Making - Medical Decision Making This is a [age] female who presents to the emergency department chief complaint of right hand injury. Patient states that prior to arrival she punched a closet. Tenderness along the fourth and fifth metacarpals, however no significant swelling or ecchymosis noted. X-ray was obtained and revealed no acute fractures or dislocations. An Antonio bandage was placed and patient tolerated well without complication. She is neurovascularly intact. Recommended rest, ice, ibuprofen and to follow-up with her primary care provider. Patient is in agreement with plan and voices understanding. All questions were answered. She'll be discharged home at this time. - Radiology Data Radiology results: report reviewed X-ray right hand impression: No definite acute fracture or dislocation. If symptoms persist, follow-up study in 7-10 days would be suggested. Disposition Clinical Impression: Hand contusion Disposition: HOME SELF-CARE Condition: Good Instructions: Contusion in Adults (ED) Additional Instructions: Please rest, ice and take ibuprofen as needed. Please avoid wearing the Antonio bandage at night while asleep. Please follow up with primary care provider within 1-2 days. Return to emergency department if symptoms should worsen or any concerns arise. Is patient prescribed a controlled substance at d/c from ED?: No Referrals: Delia Valero MD [Primary Care Provider] - 1-2 days Time of Disposition: 13:12
--- NOTE | 2018-01-07 12:56 | XR ---
EXAMINATION TYPE: XR hand complete RT DATE OF EXAM: 01/07/2018 COMPARISON: NONE HISTORY: pain, punched wall TECHNIQUE: Three views are submitted. FINDINGS: The osseous structures are intact. The joint spaces are preserved and there is no acute fracture or dislocation. IMPRESSION: 1. No definite acute fracture or dislocation if symptoms persist, follow-up study in 7 to 10 days wo uld be suggested
== END 2018-01-07 13:18 | disposition home or self-care (01) ==
LOC: EC 12:25
DX: S60.221A Contusion of right hand, initial encounter (principal); F41.9 Anxiety disorder, unspecified; Z79.899 Other long term (current) drug therapy; Z88.0 Allergy status to penicillin; Z88.8 Allergy status to other drugs, medicaments and biological substances; W22.01XA Walked into wall, initial encounter
CPT/HCPCS: 99283

== ENCOUNTER 2018-01-23 09:38 | Day surgery (SDC) | payer OTHER ==
[2018-01-22 11:39] VITALS: BMI 40.7
[~2018-01-23 09:38] MED LIST: LACTATED RINGERS 1,000 ML IV SCH; LIDOCAINE 1% 20 ML VIAL (10MG/ML) FOR IV START INTRADERMA PRN
[2018-01-23 10:03] VITALS: TEMP 98.9
[2018-01-23] MEDS ORDERED: LIDOCAINE 1% INJ 10MG/ML (20 ML MDV) ONE (11:25)
[2018-01-23] MEDS ORDERED: PROPOFOL 10 MG/ML 20 ML VIAL IV ONE (11:25)
--- NOTE | 2018-01-23 12:18 | P.PCN ---
Date of Procedure: 01/23/18 Procedure(s) Performed: Procedure: 1. Esophagogastroduodenoscopy and biopsy. 2. Colonoscopy and biopsy. Preoperative diagnosis: Epigastric pain and change in bowel habits. Postoperative diagnosis: 1. Small sliding hiatal hernia with no obvious esophagitis or complaints reflux disease. 2. Mild antral gastritis. 3. Mild sigmoid diverticulosis. 4. Low-grade internal hemorrhoids without bleeding at the time of this exam. 5. Biopsies obtained from the duodenum, antrum, esophagus and right colon. Preparation: HalfLytely prep. Sedation: Was provided by anesthesia. Brief clinical history: The patient is a 48-year-old female who was evaluated in our office earlier this month for abdominal pains of several years duration. Rare episodes of nausea but no vomiting rare heartburn. She has 2-3 bowel movements daily of and loose in consistency and she had intermittent rectal bleeding. No other alarm symptoms. Procedure: With the patient on her left lateral decubitus position and after informed consent and adequate sedation, I passed the Olympus-GIF 160 video upper endoscope through the cricopharyngeus down the esophagus. GE junction was around 39 cm from the incisors and there was a small sliding hiatal hernia but no obvious esophagitis or complicated reflux disease. The endoscope was then passed into the stomach which was insufflated with air and inspected in detail including the retroflex view in the cardia. There was some mottling and erythema in the antrum but no ulcers or erosions. Pyloric channel, duodenal bulb, post bulbar area and descending duodenum showed minimal erythema. I obtained biopsies from the duodenum, antrum and esophagus then the endoscope was withdrawn and I proceeded with the colonoscopy. Perianal area did not show any fissures or fistulas. There were no masses felt on digital rectal examination. The Olympus CFQ 160L video colonoscope was then inserted in the rectum in the usual fashion and advanced to the cecum. There were few diverticular orifices scattered noted in the sigmoid with no evidence of acute diverticulitis or strictures. Low-grade internal hemorrhoids were noted with no evidence of bleeding. I obtained biopsies from the right colon because of the diarrhea before the endoscope was withdrawn. The mucosa overall appeared healthy. No polyps or tumors were seen. The patient tolerated the procedure well. Plan: The patient was reassured. Will await biopsy results. Discussed dietary measures and local care for hemorrhoids. She will follow-up in the office as planned and we would keep you updated on her progress.
[2018-01-23 12:26] VITALS: BP 124/74; PULSE 81; RESP 14
== END 2018-01-23 13:04 | disposition home or self-care (01) ==
LOC: ORWHC2ENDO 09:38
DX: K29.50 Unspecified chronic gastritis without bleeding (principal); K44.9 Diaphragmatic hernia without obstruction or gangrene; B96.81 Helicobacter pylori [H. pylori] as the cause of diseases classified elsewhere; K57.32 Diverticulitis of large intestine without perforation or abscess without bleeding; K64.8 Other hemorrhoids; K21.0 Gastro-esophageal reflux disease with esophagitis; Z88.8 Allergy status to other drugs, medicaments and biological substances; Z88.0 Allergy status to penicillin; F39 Unspecified mood [affective] disorder; Z87.442 Personal history of urinary calculi
CPT/HCPCS: 88305; 88342; 45380; 43239; J2001; J2704

== ENCOUNTER 2018-03-23 11:39 | Emergency (ER) | payer OTHER ==
[2018-03-23 11:54] VITALS: RESP 18
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
--- NOTE | 2018-03-23 12:59 | XR ---
EXAMINATION TYPE: XR hand complete RT , 4 VIEWS DATE OF EXAM ORDERED: 03/23/2018 HISTORY: Pain. COMPARISON: None. FINDINGS: The fingers are flexed in all projections. This makes assessment of the joint spaces diffi cult. No fracture or dislocation is seen. IMPRESSION: NO ACUTE OSSEOUS LESION.
--- NOTE | 2018-03-23 13:02 | XR ---
EXAMINATION TYPE: XR wrist complete RT , 4 VIEWS DATE OF EXAM ORDERED: 03/23/2018 HISTORY: Pain. COMPARISON: None. FINDINGS: The trapezoid is superimposed over the trapezium in all projections. Based on this finding , it would be difficult to exclude a dislocation. No definite fracture is seen. IMPRESSION: SUPERIMPOSITION OF THE TRAPEZOID OVER THE TRAPEZIUM IN ALL PROJECTIONS MAKING IT IMPOSSIBLE TO EXCLUD E A DISLOCATION. A CT SCAN OF THE REST OF THE SUGGESTED.
--- NOTE | 2018-03-23 14:24 | CT ---
EXAMINATION TYPE: CT hand RT wo con DATE OF EXAM: 03/23/2018 COMPARISON: None HISTORY: Patient complains of pain post trauma. CT DLP: 107.2 mGycm Automated exposure control for dose reduction was used. FINDINGS: Multiple axial sections were obtained from the mid carpus to the tips of the fingers with no contrast . I see no fracture nor dislocation. There are no erosions. There are minor degenerative changes in the joints. There is no evidence of soft tissue mass. The metacarpals are intact. IMPRESSION: NO ACUTE ABNORMALITY OF THE RIGHT HAND.
--- NOTE | 2018-03-23 14:26 | CT ---
EXAMINATION TYPE: CT wrist RT wo con DATE OF EXAM: 03/23/2018 COMPARISON: None HISTORY: Patient complains of pain post trauma. CT DLP: 107.2 mGycm Automated exposure control for dose reduction was used. FINDINGS: Multiple axial sections were obtained from the distal radius to the proximal metacarpals with no cont rast. THE CARPAL BONES ARE INTACT. JOINT SPACES ARE FAIRLY NORMAL. THERE ARE NO EROSIONS. I SEE NO BONY SAUNDRA TRUCTIVE PROCESS. THERE IS NO EVIDENCE OF A SOFT TISSUE MASS. THERE IS MILD SUBCUTANEOUS EDEMA OVER T HE ANTERIOR MEDIAL CARPUS. IMPRESSION: Mild soft tissue swelling over the anterior and medial carpus. No fracture seen.
[2018-03-23 14:47] VITALS: BP 136/75; PULSE 84; TEMP 97.8
== END 2018-03-23 14:45 | disposition home or self-care (01) ==
LOC: EC 11:39
DX: S69.91XA Unspecified injury of right wrist, hand and finger(s), initial encounter (principal); F41.9 Anxiety disorder, unspecified; Z79.899 Other long term (current) drug therapy; Z88.0 Allergy status to penicillin; Z88.8 Allergy status to other drugs, medicaments and biological substances; W22.01XA Walked into wall, initial encounter
CPT/HCPCS: 29125; 99284

== ENCOUNTER 2019-05-22 13:45 | Emergency (ER) | payer OTHER ==
[2019-05-22 13:55] VITALS: BP 109/68; PULSE 104; RESP 18; TEMP 98.6
[2019-05-22] MEDS ORDERED: Acetaminophen-Codeine 300-30mg TAB PO STA (14:06)
--- NOTE | 2019-05-22 14:45 | XR ---
Right wrist and right hand, right forearm HISTORY: Trauma and pain 3 views of the right hand, 4 views of the right wrist, 2 views of the right forearm submitted. Bone mineralization, joint spaces and alignment are maintained. Arthropathy noted within the hand at the interphalangeal joint of the first digit, radiocarpal joint and right elbow. Question a small oss ific density dorsal to the wrist appears well-corticated. No evident joint effusion. IMPRESSION: No definite fracture or dislocation of the right hand, right wrist, right forearm. Small ossific density at the dorsal aspect of the wrist could be related to triquetral fracture of indeterm inate age. Correlate for point tenderness.
[2019-05-22] MEDS ORDERED: ACET/COD 300 MG/30 MG STARTER PACK 6 TAB BTL PO STA (15:14)
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
== END 2019-05-22 15:21 | disposition home or self-care (01) ==
LOC: EC 13:45
DX: S63.501A Unspecified sprain of right wrist, initial encounter (principal); F41.9 Anxiety disorder, unspecified; Z79.899 Other long term (current) drug therapy; Z88.0 Allergy status to penicillin; Z88.8 Allergy status to other drugs, medicaments and biological substances; W22.8XXA Striking against or struck by other objects, initial encounter
CPT/HCPCS: 29125; 99284

== ENCOUNTER 2019-09-11 16:20 | Emergency (ER) | payer BC ==
[2019-09-11 16:40] VITALS: BP 137/85; PULSE 94; TEMP 99.2
[2019-09-11 17:34] VITALS: RESP 18
--- NOTE | 2019-09-11 17:52 | XR ---
EXAMINATION TYPE: XR chest 2V DATE OF EXAM: 09/11/2019 COMPARISON: 12/29/2017 HISTORY: Chest pain. Cough TECHNIQUE: FINDINGS: Heart and mediastinum are normal. Lungs are clear. Diaphragm is normal. Bony thorax appears normal. Pulmonary vascularity is normal. IMPRESSION: Normal chest. No change.
--- NOTE | 2019-09-11 18:05 | ED ---
URI HPI - General Chief Complaint: Upper Respiratory Infection Stated Complaint: Cough/congestion Time Seen by Provider: 09/11/19 17:19 Source: patient Mode of arrival: ambulatory Limitations: no limitations - History of Present Illness Initial Comments: Patient is a 41-year-old female presenting to emergency Department with complaints of a cough 2-3 weeks. Patient states she is having progressive shortness of breath and producing yellow to brown colored phlegm. Patient admits to chills however no fever, nausea, vomiting. She has no history of a sthma or COPD. She has no other complaints at this time. Upon arrival to ER, vital signs are stable. - Related Data Home Medications Medication Instructions Recorded Confirmed Citalopram Hydrobromide [CeleXA] 20 mg PO HS 09/05/17 01/23/18 LORazepam [Ativan] 0.5 mg PO DAILY PRN 09/05/17 01/23/18 Oxybutynin Chloride [Ditropan] 5 mg PO BID 01/22/18 01/23/18 Phentermine HCl [Adipex P] 15 mg PO DAILY 01/22/18 01/23/18 Previous Rx's Medication Instructions Recorded Azithromycin [Zithromax Z-pack] 0 mg PO DIRECTED #1 pack 09/11/19 methylPREDNISolone [Medrol Dose 4 mg PO DIRECTED #1 pack 09/11/19 Pack] Allergies Allergy/AdvReac Type Severity Reaction Status Date / Time amoxicillin Allergy Anaphylaxis Verified 05/22/19 13:55 fluticasone propionate Allergy Rash/Hives Verified 05/22/19 13:55 [From Advair Diskus] salmeterol xinafoate Allergy Rash/Hives Verified 05/22/19 13:55 [From Advair Diskus] albuterol sulfate AdvReac Passed Out Verified 05/22/19 13:55 [From Ventolin HFA] Review of Systems ROS Statement: Those systems with pertinent positive or pertinent negative responses have been documented in the HPI. ROS Other: All systems not noted in ROS Statement are negative. Past Medical History Past Medical History: GERD/Reflux Additional Past Medical History / Comment(s): kidney stones History of Any Multi-Drug Resistant Organisms: None Reported Past Surgical History: Appendectomy, Hysterectomy, Tonsillectomy Additional Past Surgical History / Comment(s): partial hysterectomy Past Anesthesia/Blood Transfusion Reactions: No Reported Reaction Past Psychological History: Anxiety Smoking Status: Never smoker Past Alcohol Use History: None Reported Past Drug Use History: None Reported - Past Family History Father Family Medical History: No Reported History General Exam - General Exam Comments Initial Comments: GENERAL: Well-appearing, well-nourished and in no acute distress. HEAD: Atraumatic, normocephalic. EYES: Pupils equal round and reactive to light, extraocular movements intact, sclera anicteric, conjunctiva are normal. ENT: TMs normal, nares patent, oropharynx clear without exudates. Moist mucous membranes. NECK: Normal range of motion, supple without lymphadenopathy or JVD. LUNGS: Breath sounds clear to auscultation bilaterally and equal. No wheezes rales or rhonchi. HEART: Regular rate and rhythm without murmurs, rubs or gallops. ABDOMEN: Soft, nontender, normoactive bowel sounds. No guarding, no rebound. No masses appreciated. : Deferred EXTREMITIES: Normal range of motion, no pitting or edema. No clubbing or cyanosis. NEUROLOGICAL: Normal speech, normal gait. PSYCH: Normal mood, normal affect. SKIN: Warm, Dry, normal turgor, no rashes or lesions noted. Limitations: no limitations Course Vital Signs 09/11/19 09/11/19 16:37 17:31 Temperature 99.2 F Pulse Rate 94 Respiratory 19 18 Rate Blood Pressure 137/85 O2 Sat by Pulse 95 Oximetry Medical Decision Making - Medical Decision Making Patient is a 49-year-old female presenting with a cough 3 weeks. Vital signs are stable today. Chest X-ray reveals no acute changes. I discussed these findings with the patient and given her length of symptoms patient will be treated with azithromycin as well as round of steroids. She is in agreement this plan of care. Return parameters were discussed with the patient she verbalized understanding. Patient will follow up with PCP as symptoms persist. Disposition Clinical Impression: Cough, Bronchitis Disposition: HOME SELF-CARE Condition: Stable Instructions (If sedation given, give patient instructions): Acute Bronchitis (ED) Additional Instructions: Please return to the Emergency Department if symptoms worsen or any other concerns. Take antibiotic and steroid as prescribed. Follow-up with PCP if symptoms persist. Prescriptions: methylPREDNISolone [Medrol Dose Pack] 4 mg PO DIRECTED #1 pack Azithromycin [Zithromax Z-pack] 0 mg PO DIRECTED #1 pack Is patient prescribed a controlled substance at d/c from ED?: No Referrals: None,Stated [Primary Care Provider] - 1-2 days
== END 2019-09-11 18:15 | disposition home or self-care (01) ==
LOC: EC 16:20
DX: J40 Bronchitis, not specified as acute or chronic (principal); F41.9 Anxiety disorder, unspecified; Z88.0 Allergy status to penicillin; Z88.8 Allergy status to other drugs, medicaments and biological substances; Z79.899 Other long term (current) drug therapy; Z90.89 Acquired absence of other organs
CPT/HCPCS: 71046; 99284

== ENCOUNTER 2019-09-13 10:35 | Emergency (ER) | payer BC ==
[2019-09-13 10:42] VITALS: TEMP 98.3
[2019-09-13] MEDS ORDERED: ACETAMINOPHEN TAB 500 MG TAB PO STA (10:58)
[2019-09-13] MEDS ORDERED: methylPREDNISolone SOD SUCCI 125 MG/2 ML VIAL IV STA (10:58)
[2019-09-13] MEDS ORDERED: guaiFENesin-DM 100-10MG/5ML 10 ML CUP PO STA (10:59)
[2019-09-13] MEDS ORDERED: SODIUM CHLORIDE 0.9% 1,000 ML IV ONE (10:59)
--- NOTE | 2019-09-13 11:14 | ED ---
General Adult HPI - General Chief complaint: Recheck/Abnormal Lab/Rx Stated complaint: Congestion Time Seen by Provider: 09/13/19 10:52 Source: patient, RN notes reviewed, old records reviewed Mode of arrival: ambulatory Limitations: no limitations - History of Present Illness Initial comments: Pat is a 49-year-old female, nonsmoker. She presents today with 3 weeks of cough congestion. Patient was seen in the emergency department 2 days ago diagn osed with bronchitis. She was initiated on Medrol Dosepak and azithromycin. Patient reports that she's had worsening cough congestion since that time. She reports history of sick contacts with positive RSV for her grandchildren. Patient states that she's had some chills denies any specific fever. Patient relates that she's had no specific chest pain. She does report that she is short of breath with miniminal exertion. - Related Data Home Medications Medication Instructions Recorded Confirmed Citalopram Hydrobromide [CeleXA] 20 mg PO HS 09/05/17 01/23/18 LORazepam [Ativan] 0.5 mg PO DAILY PRN 09/05/17 01/23/18 Oxybutynin Chloride [Ditropan] 5 mg PO BID 01/22/18 01/23/18 Phentermine HCl [Adipex P] 15 mg PO DAILY 01/22/18 01/23/18 Previous Rx's Medication Instructions Recorded Azithromycin [Zithromax Z-pack] 0 mg PO DIRECTED #1 pack 09/11/19 methylPREDNISolone [Medrol Dose 4 mg PO DIRECTED #1 pack 09/11/19 Pack] guaiFENesin-DM 100-10MG/5ML 10 ml PO QID #120 ml 09/13/19 [Robitussin DM] predniSONE 50 mg PO DAILY #5 tablet 09/13/19 Allergies Allergy/AdvReac Type Severity Reaction Status Date / Time amoxicillin Allergy Anaphylaxis Verified 05/22/19 13:55 fluticasone propionate Allergy Rash/Hives Verified 05/22/19 13:55 [From Advair Diskus] salmeterol xinafoate Allergy Rash/Hives Verified 05/22/19 13:55 [From Advair Diskus] albuterol sulfate AdvReac Passed Out Verified 05/22/19 13:55 [From Ventolin HFA] Review of Systems ROS Statement: Those systems with pertinent positive or pertinent negative responses have been documented in the HPI. ROS Other: All systems not noted in ROS Statement are negative. Past Medical History Past Medical History: GERD/Reflux Additional Past Medical History / Comment(s): kidney stones History of Any Multi-Drug Resistant Organisms: None Reported Past Surgical History: Appendectomy, Hysterectomy, Tonsillectomy Additional Past Surgical History / Comment(s): partial hysterectomy Past Anesthesia/Blood Transfusion Reactions: No Reported Reaction Past Psychological History: Anxiety Smoking Status: Never smoker Past Alcohol Use History: None Reported Past Drug Use History: None Reported - Past Family History Father Family Medical History: No Reported History General Exam - General Exam Comments Initial Comments: 49-year-old female. Alert and oriented. No distress. Limitations: no limitations General appearance: alert, in no apparent distress Head exam: Present: atraumatic, normocephalic, normal inspection Eye exam: Present: normal appearance, PERRL, EOMI. Absent: scleral icterus, conjunctival injection, periorbital swelling ENT exam: Present: normal exam, mucous membranes moist Neck exam: Present: normal inspection. Absent: tenderness, meningismus, lymphadenopathy Respiratory exam: Present: normal lung sounds bilaterally. Absent: respiratory distress, wheezes, rales, rhonchi, stridor Cardiovascular Exam: Present: regular rate, normal rhythm, normal heart sounds. Absent: systolic murmur, diastolic murmur, rubs, gallop, clicks GI/Abdominal exam: Present: soft, normal bowel sounds. Absent: distended, tenderness, guarding, rebound, rigid Extremities exam: Present: normal inspection, full ROM, normal capillary refill. Absent: tenderness, pedal edema, joint swelling, calf tenderness Back exam: Present: normal inspection Neurological exam: Present: alert, oriented X3, CN II-XII intact Psychiatric exam: Present: normal affect, normal mood Skin exam: Present: warm, dry, intact, normal color. Absent: rash Course Vital Signs 09/13/19 09/13/19 10:39 12:00 Temperature 98.3 F Pulse Rate 99 Respiratory 22 20 Rate Blood Pressure 150/89 O2 Sat by Pulse 96 Oximetry Medical Decision Making - Medical Decision Making 41-year-old female presents with worsening cough for the past few days. She is treated for bronchitis emergency department days ago. Lung sounds are relatively clear. No significant wheezing or diminished lung sounds. She does have a cough. Patient's vital signs are stable. EKG shows no acute changes. Lab work included white blood cell count were unremarkable. At this time Patient given Robitussin-DM. I discussed that her chest x-ray continues to be normalpneumonia. Patient will have her steroids and have a higher level prednisone for the next few days and advise using a cough syrup. Patient will continue azithromycin. All questions answered return parameters were discussed. She was given IV Solu-Medrol and IV Rocephin at this time. - Lab Data Result diagrams: 09/13/19 11:10 09/13/19 11:10 Lab Results 09/13/19 09/13/19 09/13/19 Range/Units 11:10 11:10 11:10 WBC 10.2 (3.8-10.6) k/uL RBC 4.41 (3.80-5.40) m/uL Hgb 12.9 (11.4-16.0) gm/dL Hct 38.3 (34.0-46.0) % MCV 86.9 (80.0-100.0) fL MCH 29.1 (25.0-35.0) pg MCHC 33.5 (31.0-37.0) g/dL RDW 13.7 (11.5-15.5) % Plt Count 213 (150-450) k/uL Neutrophils % 76 % Lymphocytes % 17 % Monocytes % 4 % Eosinophils % 1 % Basophils % 0 % Neutrophils # 7.8 H (1.3-7.7) k/uL Lymphocytes # 1.8 (1.0-4.8) k/uL Monocytes # 0.4 (0-1.0) k/uL Eosinophils # 0.1 (0-0.7) k/uL Basophils # 0.0 (0-0.2) k/uL Sodium 143 (137-145) mmol/L Potassium 3.5 (3.5-5.1) mmol/L Chloride 109 H (98-107) mmol/L Carbon Dioxide 25 (22-30) mmol/L Anion Gap 9 mmol/L BUN 11 (7-17) mg/dL Creatinine 0.61 (0.52-1.04) mg/dL Est GFR (CKD-EPI)AfAm >90 (>60 ml/min/1.73 sqM) Est GFR (CKD-EPI)NonAf >90 (>60 ml/min/1.73 sqM) Glucose 109 H (74-99) mg/dL Calcium 9.2 (8.4-10.2) mg/dL Troponin I (0.000-0.034) ng/mL Influenza Type A RNA Not Detected (Not Detectd) Influenza Type B (PCR) Not Detected (Not Detectd) 09/13/19 Range/Units 11:10 WBC (3.8-10.6) k/uL RBC (3.80-5.40) m/uL Hgb (11.4-16.0) gm/dL Hct (34.0-46.0) % MCV (80.0-100.0) fL MCH (25.0-35.0) pg MCHC (31.0-37.0) g/dL RDW (11.5-15.5) % Plt Count (150-450) k/uL Neutrophils % % Lymphocytes % % Monocytes % % Eosinophils % % Basophils % % Neutrophils # (1.3-7.7) k/uL Lymphocytes # (1.0-4.8) k/uL Monocytes # (0-1.0) k/uL Eosinophils # (0-0.7) k/uL Basophils # (0-0.2) k/uL Sodium (137-145) mmol/L Potassium (3.5-5.1) mmol/L Chloride (98-107) mmol/L Carbon Dioxide (22-30) mmol/L Anion Gap mmol/L BUN (7-17) mg/dL Creatinine (0.52-1.04) mg/dL Est GFR (CKD-EPI)AfAm (>60 ml/min/1.73 sqM) Est GFR (CKD-EPI)NonAf (>60 ml/min/1.73 sqM) Glucose (74-99) mg/dL Calcium (8.4-10.2) mg/dL Troponin I <0.012 (0.000-0.034) ng/mL Influenza Type A RNA (Not Detectd) Influenza Type B (PCR) (Not Detectd) 09/13/19 13:26 EKG is negative for any acute abdomen or maladies. Normal EKG noted. Ventricular rate of 77 bpm. WI interval is 160 ms. QRS duration is 90 ms. QT QTc is 46/459 ms. - Radiology Data Radiology results: report reviewed Chest x-ray is normal. No acute changes. Disposition Clinical Impression: Bronchitis Disposition: HOME SELF-CARE Condition: Good Instructions (If sedation given, give patient instructions): Acute Bronchitis (ED) Additional Instructions: Please use medication as discussed. Please follow up with family doctor if symptoms have not improved over the next two days. Please return to the emergency room if your symptoms increase or worsen or for any other concerns. Prescriptions: predniSONE 50 mg PO DAILY #5 tablet guaiFENesin-DM 100-10MG/5ML [Robitussin DM] 10 ml PO QID #120 ml Is patient prescribed a controlled substance at d/c from ED?: No Referrals: None,Stated [Primary Care Provider] - 1-2 days Sumeet Mike [STAFF PHYSICIAN] - 1-2 days Time of Disposition: 13:24
[2019-09-13 11:46] LABS: African American GFR (CKD) >90 (>60 ml/min/1.73 sqM); Anion Gap 9 mmol/L; Blood Urea Nitrogen 11 mg/dL (7-17); Calcium 9.2 mg/dL (8.4-10.2); Carbon Dioxide 25 mmol/L (22-30); Chloride 109 mmol/L (98-107); Glucose 109 mg/dL (74-99); Non-African American GFR(CKD) >90 (>60 ml/min/1.73 sqM); Potassium 3.5 mmol/L (3.5-5.1); Sodium 143 mmol/L (137-145)
--- NOTE | 2019-09-13 11:46 | XR ---
EXAMINATION TYPE: XR chest 2V DATE OF EXAM: 09/13/2019 HISTORY: cough. REFERENCE: Previous study dated 09/11/2019. FINDINGS: Lungs remain clear. Pleural space are clear. The heart is not enlarged. IMPRESSION: NORMAL CHEST.
[2019-09-13 12:13] LABS: Basophils % (A) 0 %; Eosinophils # (A) 0.1 k/uL (0-0.7); Eosinophils % (A) 1 %; HCT 38.3 % (34.0-46.0); HGB 12.9 gm/dL (11.4-16.0); Lymphocytes # (A) 1.8 k/uL (1.0-4.8); Lymphocytes % (A) 17 %; MCH 29.1 pg (25.0-35.0); MCHC 33.5 g/dL (31.0-37.0); MCV 86.9 fL (80.0-100.0); Mean Platelet Volume 8.1; Monocytes # (A) 0.4 k/uL (0-1.0); Monocytes % (A) 4 %; Neutrophils # (A) 7.8 k/uL (1.3-7.7); Neutrophils % (A) 76 %; Platelet Count 213 k/uL (150-450); RBC 4.41 m/uL (3.80-5.40); RDW 13.7 % (11.5-15.5); WBC 10.2 k/uL (3.8-10.6)
[2019-09-13] MEDS ORDERED: cefTRIAXone IN SWFI 1,000 MG/10 ML SYRINGE IVP STA (12:23)
[2019-09-13 13:46] VITALS: BP 141/76; PULSE 87; RESP 16
== END 2019-09-13 13:44 | disposition home or self-care (01) ==
LOC: EC 10:35
DX: J40 Bronchitis, not specified as acute or chronic (principal); F41.9 Anxiety disorder, unspecified; Z88.0 Allergy status to penicillin; Z88.8 Allergy status to other drugs, medicaments and biological substances; Z79.899 Other long term (current) drug therapy; Z90.89 Acquired absence of other organs; Z20.89 Contact with and (suspected) exposure to other communicable diseases
CPT/HCPCS: 99284; 96374; 96375; 96361; 36415; 93005; 80048; 84484; 85025; 87502; 71046; J2930; J0696

== ENCOUNTER 2020-01-26 11:41 | Emergency (ER) | payer BC ==
[2020-01-26 12:17] VITALS: BP 116/60; PULSE 96; RESP 20; TEMP 98.5
[2020-01-26] MEDS ORDERED: KETOROLAC 30 MG/ML 1 ML VIAL IM STA (12:29)
--- NOTE | 2020-01-26 12:32 | ED ---
Lower Extremity Injury HPI - General Chief Complaint: Extremity Injury, Lower Stated Complaint: Rt Knee pain Time Seen by Provider: 01/26/20 12:19 Source: patient Mode of arrival: ambulatory Limitations: no limitations - History of Present Illness Initial Comments: Patient is a 50-year-old female with history of right knee pain presenting to the emergency department with a chief complaint of right knee pain. Patient reports many years ago she injured her right knee after she fell down stairs. States about 2 weeks ago with no signs of direct trauma, she began to develop pain and swelling in the medial and anterior aspect of the right knee. States there is limited range of motion with flexion past 45. Denies any ecchymotic changes or erythema. States there is pain with inhalation. Reports applying ice compress with alternating Tylenol and Motrin with minimal improvement of symptoms. - Related Data Home Medications Medication Instructions Recorded Confirmed Citalopram Hydrobromide [CeleXA] 20 mg PO HS 09/05/17 01/23/18 LORazepam [Ativan] 0.5 mg PO DAILY PRN 09/05/17 01/23/18 Oxybutynin Chloride [Ditropan] 5 mg PO BID 01/22/18 01/23/18 Phentermine HCl [Adipex P] 15 mg PO DAILY 01/22/18 01/23/18 Previous Rx's Medication Instructions Recorded Azithromycin [Zithromax Z-pack] 0 mg PO DIRECTED #1 pack 09/11/19 methylPREDNISolone [Medrol Dose 4 mg PO DIRECTED #1 pack 09/11/19 Pack] guaiFENesin-DM 100-10MG/5ML 10 ml PO QID #120 ml 09/13/19 [Robitussin DM] predniSONE 50 mg PO DAILY #5 tablet 09/13/19 Allergies Allergy/AdvReac Type Severity Reaction Status Date / Time amoxicillin Allergy Anaphylaxis Verified 01/26/20 12:17 fluticasone propionate Allergy Rash/Hives Verified 01/26/20 12:17 [From Advair Diskus] salmeterol xinafoate Allergy Rash/Hives Verified 01/26/20 12:17 [From Advair Diskus] albuterol sulfate AdvReac Passed Out Verified 01/26/20 12:17 [From Ventolin HFA] Review of Systems ROS Statement: Those systems with pertinent positive or pertinent negative responses have been documented in the HPI. ROS Other: All systems not noted in ROS Statement are negative. Past Medical History Past Medical History: GERD/Reflux Additional Past Medical History / Comment(s): kidney stones History of Any Multi-Drug Resistant Organisms: None Reported Past Surgical History: Appendectomy, Hysterectomy, Tonsillectomy Additional Past Surgical History / Comment(s): partial hysterectomy Past Anesthesia/Blood Transfusion Reactions: No Reported Reaction Past Psychological History: Anxiety Smoking Status: Never smoker Past Alcohol Use History: None Reported Past Drug Use History: None Reported - Past Family History Father Family Medical History: No Reported History General Exam Limitations: no limitations General appearance: alert, in no apparent distress, obese Head exam: Present: atraumatic, normocephalic, normal inspection Eye exam: Present: normal appearance, PERRL, EOMI Pupils: Present: normal accommodation ENT exam: Present: normal exam Neck exam: Present: normal inspection, full ROM Respiratory exam: Present: normal lung sounds bilaterally Cardiovascular Exam: Present: regular rate, normal rhythm, normal heart sounds Extremities exam: Present: tenderness (Tenderness along the medial anterior aspect of her right knee.), normal capillary refill, pedal edema, joint swelling (Right knee), other (+2 dorsalis pedis and posterior tibialis bilaterally.). Absent: normal inspection (Swelling on the anterior and medial aspect of the right knee.), full ROM (Limited range of motion with flexion above 45), calf tenderness Back exam: Present: normal inspection, full ROM Neurological exam: Present: alert, oriented X3 Psychiatric exam: Present: normal affect, normal mood Skin exam: Present: warm, dry, intact, normal color Course Vital Signs 01/26/20 12:15 Temperature 98.5 F Pulse Rate 96 Respiratory 20 Rate Blood Pressure 116/60 O2 Sat by Pulse 97 Oximetry Medical Decision Making - Medical Decision Making Patient is a 50-year-old female presenting to the emergency department with a chief complaint of right knee pain. She does have history of pain in that knee from a previous injury. On exam patient does have tenderness along the medial aspect of the knee as well as limited range of motion due to pain. No signs of cellulitis or septic knee. X-ray shows persistent moderate to severe narrowing and spurring of the patellofemoral compartment. Mild to moderate narrowing with focal spurring on the medial tibiofemoral compartment. 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 Patient was advised to follow-up with graphics specialist. She was advised to alternate between Tylenol and Motrin for pain control. She was advised to apply ice compress to keep the extremity elevated. Antonio wrap was applied. Return parameters were thoroughly discussed patient is understanding and agreeable. Case discussed with physician. Disposition Clinical Impression: Pain and swelling of right knee Disposition: HOME SELF-CARE Condition: Stable Instructions (If sedation given, give patient instructions): Knee Pain (ED) Additional Instructions: Follow-up with an orthopedic doctor. Alternate between Tylenol and Motrin for pain control. Apply ice compresses to keep the leg elevated. Return to emergency department if symptoms worsen. Is patient prescribed a controlled substance at d/c from ED?: No Referrals: Delia Valero MD [Primary Care Provider] - 1-2 days Will Chin MD [Medical Doctor] - 1-2 days Time of Disposition: 13:37
--- NOTE | 2020-01-26 13:13 | XR ---
EXAMINATION TYPE: XR knee complete RT DATE OF EXAM: 01/26/2020 CLINICAL HISTORY: Pain and swelling. TECHNIQUE: Three views of the right knee are obtained. COMPARISON: Prior right knee x-ray January 01, 2016 FINDINGS: There is no acute fracture/dislocation evident in right knee. Persistent moderate to kenny re narrowing and spurring patellofemoral compartment. Some interval progression and spurring felt pre sent. Mild to moderate narrowing with focal moderate spurring medial tibial femoral compartment redem onstrated. Some interval progression of degenerative change from 2016 study is felt present. Curvilin ear ossification distal lateral femoral condyle redemonstrated suspicious for old Chani-Stieda i njury redemonstrated. The overlying soft tissue appears unremarkable. IMPRESSION: As above.
[2020-01-26] MEDS ORDERED: ACET/COD 300 MG/30 MG STARTER PACK 6 TAB BTL PO STA (13:45)
== END 2020-01-26 13:50 | disposition home or self-care (01) ==
LOC: EC 11:41
DX: M25.561 Pain in right knee (principal); M25.461 Effusion, right knee; M77.9 Enthesopathy, unspecified; F41.9 Anxiety disorder, unspecified; Z79.899 Other long term (current) drug therapy; Z88.0 Allergy status to penicillin; Z88.8 Allergy status to other drugs, medicaments and biological substances
CPT/HCPCS: 73562; 99283; 96372; J1885

== ENCOUNTER 2020-08-06 12:19 | Emergency (ER) | payer BC ==
--- NOTE | 2020-08-06 13:23 | XR ---
EXAMINATION TYPE: XR chest 1V portable DATE OF EXAM: 08/06/2020 Comparison: 09/13/2019 Clinical History: 50 year-old female shortness of breath, difficulty breathing, cough and congestion. Findings: Heart normal size. Aorta and pulmonary vasculature within normal limits. Patchy peripheral densities. No pleural effusion. Impression: Patchy peripheral densities. Unable to exclude early atypical/COVID pneumonia.
[2020-08-06] MEDS ORDERED: DEXAMETHASONE SOD PHOSPHATE 10 MG/ML 1 ML VIAL IM STA (13:46)
--- NOTE | 2020-08-06 13:52 | ED ---
General Adult HPI - General Chief complaint: Upper Respiratory Infection Stated complaint: bronchitis Time Seen by Provider: 08/06/20 12:51 Source: patient, RN notes reviewed, old records reviewed Mode of arrival: ambulatory Limitations: no limitations - History of Present Illness Initial comments: 50-year-old female presenting with almost 2 weeks of cough, congestion, mild dyspnea. Patient states she typically gets bronchitis around this time of years which she states is typically treated well with a course of steroids. She is a nonsmoker. No history of asthma. She does report fever, nasal congestion, and some vomiting. No known exposure to coronavirus. - Related Data Home Medications Medication Instructions Recorded Confirmed Citalopram Hydrobromide [CeleXA] 20 mg PO HS 09/05/17 01/23/18 LORazepam [Ativan] 0.5 mg PO DAILY PRN 09/05/17 01/23/18 Oxybutynin Chloride [Ditropan] 5 mg PO BID 01/22/18 01/23/18 Phentermine HCl [Adipex P] 15 mg PO DAILY 01/22/18 01/23/18 Previous Rx's Medication Instructions Recorded Azithromycin [Zithromax Z-pack (6 0 mg PO DIRECTED #1 pack 09/11/19 tabs)] methylPREDNISolone [Medrol Dose 4 mg PO DIRECTED #1 pack 09/11/19 Pack] guaiFENesin-DM 100-10MG/5ML 10 ml PO QID #120 ml 09/13/19 [Robitussin DM] predniSONE 50 mg PO DAILY #5 tablet 09/13/19 dexAMETHasone [Dexamethasone] 6 mg PO DAILY 5 Days #15 tablet 08/06/20 Allergies Allergy/AdvReac Type Severity Reaction Status Date / Time amoxicillin Allergy Anaphylaxis Verified 08/06/20 12:23 fluticasone propionate Allergy Rash/Hives Verified 08/06/20 12:23 [From Advair Diskus] salmeterol xinafoate Allergy Rash/Hives Verified 08/06/20 12:23 [From Advair Diskus] albuterol sulfate AdvReac Passed Out Verified 08/06/20 12:23 [From Ventolin HFA] Review of Systems ROS Statement: Those systems with pertinent positive or pertinent negative responses have been documented in the HPI. ROS Other: All systems not noted in ROS Statement are negative. Past Medical History Past Medical History: GERD/Reflux Additional Past Medical History / Comment(s): kidney stones History of Any Multi-Drug Resistant Organisms: None Reported Past Surgical History: Appendectomy, Hysterectomy, Tonsillectomy Additional Past Surgical History / Comment(s): partial hysterectomy Past Anesthesia/Blood Transfusion Reactions: No Reported Reaction Past Psychological History: Anxiety Smoking Status: Never smoker Past Alcohol Use History: None Reported Past Drug Use History: None Reported - Past Family History Father Family Medical History: No Reported History General Exam Limitations: no limitations General appearance: alert, in no apparent distress Head exam: Present: atraumatic, normocephalic Eye exam: Present: normal appearance ENT exam: Present: normal exam Neck exam: Present: normal inspection. Absent: tenderness, meningismus Respiratory exam: Present: rhonchi (Mild bilateral rhonchi, good air entry, no respiratory distress). Absent: respiratory distress Cardiovascular Exam: Present: regular rate, normal rhythm GI/Abdominal exam: Present: soft. Absent: distended, tenderness Extremities exam: Present: normal inspection, normal capillary refill Neurological exam: Present: alert, oriented X3, CN II-XII intact Psychiatric exam: Present: normal affect, normal mood Skin exam: Present: warm, dry. Absent: cyanosis, diaphoretic Course Vital Signs 08/06/20 12:21 Temperature 99.0 F Pulse Rate 96 Respiratory 20 Rate Blood Pressure 133/85 O2 Sat by Pulse 92 L Oximetry Medical Decision Making - Medical Decision Making 50-year-old female presenting with cough, congestion, fever. Chest x-ray showing a bilateral infiltrate consistent with COVID-19. Her coronavirus testing is positive. She's given a dose of Decadron in the emergency de partment. Her room air saturation is She will closely monitor symptoms at home specifically her breathing and will return with any worsening or changing symptoms. She will quarantine for 14 days . - Lab Data Lab Results 08/06/20 Range/Units 12:59 Coronavirus (PCR) Detected A (Not Detectd) Disposition Clinical Impression: COVID-19 Disposition: HOME SELF-CARE Condition: Fair Instructions (If sedation given, give patient instructions): Viral Pneumonia (ED) Additional Instructions: Please 15 year self 14 days. Please monitor your breathing closely and return with any worsening breathing issues. Please take vitamin D, vitamin C, zinc, as well as prescribed steroid. Prescriptions: dexAMETHasone [Dexamethasone] 6 mg PO DAILY 5 Days #15 tablet Is patient prescribed a controlled substance at d/c from ED?: No Referrals: Delia Valero MD [Primary Care Provider] - 1-2 days Time of Disposition: 13:52
[2020-08-06 14:37] VITALS: BP 108/77; PULSE 83; RESP 18; TEMP 99.8
== END 2020-08-06 14:37 | disposition home or self-care (01) ==
LOC: EC 12:19
DX: U07.1 COVID-19 (principal); F41.9 Anxiety disorder, unspecified; Z79.899 Other long term (current) drug therapy; Z88.0 Allergy status to penicillin; Z88.8 Allergy status to other drugs, medicaments and biological substances
CPT/HCPCS: 87635; 71045; 99284; 96372; J1100

== ENCOUNTER 2021-04-01 09:15 | Emergency (ER) | payer BC ==
--- NOTE | 2021-04-01 09:57 | XR ---
Left foot. HISTORY: Erythema and swelling fourth toe. COMPARISON: None. TECHNIQUE: 3 views of left foot were obtained. FINDINGS: There is deformity of the proximal aspect of the proximal phalanx second toe secondary to remote trau ma. There is a moderate plantar calcaneal spur. There is no acute fracture or dislocation or cortical disruption or periosteal reaction. There is no radiopaque foreign body or abnormal soft tissue calcification.. Impression: no acute fracture, dislocation or soft tissue
--- NOTE | 2021-04-01 10:14 | ED ---
General Adult HPI - General Chief complaint: Extremity Injury, Lower Stated complaint: Ankle injury Time Seen by Provider: 04/01/21 09:21 Source: patient Mode of arrival: ambulatory Limitations: no limitations - History of Present Illness Initial comments: 51-year-old female with a possible history of GERD presents to the emergency room for a chief complaint of left foot pain. This is been ongoing for about 2 weeks. Patient believes she injured her foot while putting on her shoe 2 weeks ago. States that it hurt to walk on throughout the night and just never got better. Patient denies fevers or chills. Denies history of diabetes.Patient has no other complaints at this time including shortness of breath, chest pain, abdominal pain, nausea or vomiting, headache, or visual changes. - Related Data Home Medications Medication Instructions Recorded Confirmed Citalopram Hydrobromide [CeleXA] 20 mg PO HS 09/05/17 01/23/18 LORazepam [Ativan] 0.5 mg PO DAILY PRN 09/05/17 01/23/18 Oxybutynin Chloride [Ditropan] 5 mg PO BID 01/22/18 01/23/18 Phentermine HCl [Adipex P] 15 mg PO DAILY 01/22/18 01/23/18 Previous Rx's Medication Instructions Recorded Azithromycin [Zithromax Z-pack (6 0 mg PO DIRECTED #1 pack 09/11/19 tabs)] methylPREDNISolone [Medrol Dose 4 mg PO DIRECTED #1 pack 09/11/19 Pack] guaiFENesin-DM 100-10MG/5ML 10 ml PO QID #120 ml 09/13/19 [Robitussin DM] predniSONE 50 mg PO DAILY #5 tablet 09/13/19 dexAMETHasone [Dexamethasone] 6 mg PO DAILY 5 Days #15 tablet 08/06/20 Cephalexin [Keflex] 500 mg PO Q6HR 10 Days #40 cap 04/01/21 Allergies Allergy/AdvReac Type Severity Reaction Status Date / Time amoxicillin Allergy Anaphylaxis Verified 04/01/21 09:16 fluticasone propionate Allergy Rash/Hives Verified 04/01/21 09:16 [From Advair Diskus] salmeterol xinafoate Allergy Rash/Hives Verified 04/01/21 09:16 [From Advair Diskus] albuterol sulfate AdvReac Passed Out Verified 04/01/21 09:16 [From [facility]] Review of Systems ROS Statement: Those systems with pertinent positive or pertinent negative responses have been documented in the HPI. ROS Other: All systems not noted in ROS Statement are negative. Past Medical History Past Medical History: GERD/Reflux Additional Past Medical History / Comment(s): kidney stones History of Any Multi-Drug Resistant Organisms: None Reported Past Surgical History: Appendectomy, Hysterectomy, Tonsillectomy Additional Past Surgical History / Comment(s): partial hysterectomy Past Anesthesia/Blood Transfusion Reactions: No Reported Reaction Past Psychological History: Anxiety Smoking Status: Never smoker Past Alcohol Use History: Occasional Past Drug Use History: None Reported - Past Family History Father Family Medical History: No Reported History General Exam Limitations: no limitations General appearance: alert, in no apparent distress Head exam: Present: atraumatic, normocephalic, normal inspection Eye exam: Present: normal appearance, PERRL, EOMI. Absent: scleral icterus, conjunctival injection, periorbital swelling ENT exam: Present: normal exam, mucous membranes moist Neck exam: Present: normal inspection, full ROM. Absent: tenderness, meningismus, lymphadenopathy Respiratory exam: Present: normal lung sounds bilaterally. Absent: respiratory distress, wheezes, rales, rhonchi, stridor Cardiovascular Exam: Present: regular rate, normal rhythm, normal heart sounds. Absent: systolic murmur, diastolic murmur, rubs, gallop, clicks Extremities exam: Present: full ROM (Full range of motion of all digits of the left foot.), tenderness (Tenderness noted of the left forefoot.), normal capillary refill (Capillary refill less than 2 seconds, DP pulse 2+ left lower extremity.), other (Patient has mild erythema of the left forefoot including the left fourth digit. No streaking redness. No wounds of the toes.) Course Vital Signs 04/01/21 09:16 Temperature 98.1 F Pulse Rate 82 Respiratory 18 Rate Blood Pressure 121/77 O2 Sat by Pulse 95 Oximetry Medical Decision Making - Medical Decision Making X-ray of the left foot shows no acute fracture or dislocation. No soft tissue abnormalities. No cortical disruption or periosteal reaction. Dr. Bermudez also evaluated the foot. At this time patient likely has a cellulitis. We will start her on antibiotics. Strict return parameters were discussed. She will see her primary care doctor on Saturday area if she gets fevers she will return to the emergency room. Disposition Clinical Impression: Foot pain, left, Cellulitis Disposition: HOME SELF-CARE Condition: Good Instructions (If sedation given, give patient instructions): Foot Sprain (ED) Additional Instructions: Please take antibiotic as directed. Monitor for spreading or streaking redness and return if this occurs. Return for fevers or any other worsening symptoms. Otherwise follow-up with primary care on Saturday for another evaluation. Take Motrin and Tylenol for pain. Use her crutches at home for comfort. Prescriptions: Cephalexin [Keflex] 500 mg PO Q6HR 10 Days #40 cap Is patient prescribed a controlled substance at d/c from ED?: No Referrals: Delia Valero MD [Primary Care Provider] - 1-2 days Time of Disposition: 10:12
[2021-04-01] MEDS: ACET/COD 300 MG/30 MG STARTER PACK 6 TAB BTL PO STA (10:27)
[2021-04-01] MEDS: cefTRIAXone 1,000 MG VIAL (IM USE) IM STA (10:27)
[2021-04-01 10:38] VITALS: BP 138/78; PULSE 78; RESP 16; TEMP 98.2
== END 2021-04-01 10:37 | disposition home or self-care (01) ==
LOC: EC 09:15
DX: L03.116 Cellulitis of left lower limb (principal); K21.9 Gastro-esophageal reflux disease without esophagitis; F41.9 Anxiety disorder, unspecified; Z87.442 Personal history of urinary calculi; Z90.49 Acquired absence of other specified parts of digestive tract; Z79.52 Long term (current) use of systemic steroids
CPT/HCPCS: 96372; 99283

== ENCOUNTER 2021-08-20 17:56 | Emergency (ER) | payer BC ==
[2021-08-20] MEDS ORDERED: SODIUM CHLORIDE 0.9% 1,000 ML IV STA ×2 (18:21)
[2021-08-20] MEDS ORDERED: BENZONATATE 100 MG CAP PO STA (18:25)
--- NOTE | 2021-08-20 18:25 | ED ---
URI HPI - General Chief Complaint: Upper Respiratory Infection Stated Complaint: chest pain/sore throat Time Seen by Provider: 08/20/21 18:12 Source: patient, RN notes reviewed Mode of arrival: ambulatory Limitations: no limitations - History of Present Illness Initial Comments: 51-year-old female with a history of multiple ALLERGIES to medications who for the past week is had a cough with nasal congestion exertional dyspnea a sore chest for 2 or 3 days now with increased pain with deep breathing and movement. No overt fevers chills sweats no palpitations no other modifying factors. Patient is a nonsmoker she states she was not vaccinated for COVID-19 MD Complaint: cough, sore throat, nasal congestion - Related Data Home Medications Medication Instructions Recorded Confirmed Citalopram Hydrobromide [CeleXA] 20 mg PO HS 09/05/17 08/20/21 metFORMIN HCL [Glucophage] 500 mg PO BID-W/MEALS 08/20/21 08/20/21 Previous Rx's Medication Instructions Recorded Azithromycin [Zithromax Z-pack (6 250 mg PO DIRECTED 5 Days #6 tab 08/20/21 tabs)] Benzonatate [Tessalon Perles] 100 mg PO TID #21 cap 08/20/21 predniSONE [Deltasone] 20 mg PO BID #10 tab 08/20/21 Allergies Allergy/AdvReac Type Severity Reaction Status Date / Time amoxicillin Allergy Anaphylaxis Verified 08/20/21 18:46 fluticasone propionate Allergy Rash/Hives Verified 08/20/21 18:46 [From Advair Diskus] salmeterol xinafoate Allergy Rash/Hives Verified 08/20/21 18:46 [From Advair Diskus] albuterol sulfate AdvReac Passed Out Verified 08/20/21 18:46 [From Ventolin HFA] Review of Systems ROS Statement: Those systems with pertinent positive or pertinent negative responses have been documented in the HPI. ROS Other: All systems not noted in ROS Statement are negative. Past Medical History Past Medical History: GERD/Reflux Additional Past Medical History / Comment(s): kidney stones, bronchitis. History of Any Multi-Drug Resistant Organisms: None Reported Past Surgical History: Appendectomy, Hysterectomy, Tonsillectomy Additional Past Surgical History / Comment(s): partial hysterectomy Past Anesthesia/Blood Transfusion Reactions: No Reported Reaction Past Psychological History: Anxiety Smoking Status: Never smoker Past Alcohol Use History: Occasional Past Drug Use History: None Reported - Past Family History Father Family Medical History: No Reported History General Exam - General Exam Comments Initial Comments: This is a well-developed well-nourished awake alert oriented 3 female Limitations: no limitations General appearance: alert, anxious Head exam: Present: atraumatic, normocephalic, normal inspection Eye exam: Present: normal appearance, PERRL, EOMI. Absent: scleral icterus, conjunctival injection, periorbital swelling ENT exam: Present: mucous membranes dry, other (No exudates mild hyperemia) Neck exam: Present: normal inspection, full ROM, other. Absent: tenderness, meningismus, lymphadenopathy Respiratory exam: Present: normal lung sounds bilaterally, decreased breath sounds (No surgery or bruits). Absent: respiratory distress, wheezes, rales, rhonchi, stridor Cardiovascular Exam: Present: regular rate, normal rhythm, normal heart sounds. Absent: systolic murmur, diastolic murmur, rubs, gallop, clicks GI/Abdominal exam: Present: soft, normal bowel sounds. Absent: distended, tenderness, guarding, rebound, rigid Extremities exam: Present: normal inspection, full ROM, normal capillary refill. Absent: tenderness, pedal edema, joint swelling, calf tenderness Back exam: Present: normal inspection Neurological exam: Present: alert, oriented X3, CN II-XII intact Psychiatric exam: Present: normal affect, normal mood Skin exam: Present: warm, dry, intact, normal color. Absent: rash Course Vital Signs 08/20/21 08/20/21 08/20/21 18:08 18:22 19:27 Temperature 98.2 F 97.8 F Pulse Rate 91 94 Respiratory 18 18 22 Rate Blood Pressure 128/81 124/77 O2 Sat by Pulse 96 95 Oximetry 08/20/21 19:31 Temperature Pulse Rate Respiratory 22 Rate Blood Pressure O2 Sat by Pulse Oximetry Medical Decision Making - Medical Decision Making I did a long discussion regarding the findings with the patient she has had adverse reactions to inhalers in the past she does not want to have an inhaler she'll be placed on oral steroids as well as antibiotics and antitussive medication. She will follow-up with Dr. Gray makes 1-2 days. - Lab Data Result diagrams: 08/20/21 18:30 08/20/21 18:30 Lab Results 08/20/21 08/20/21 08/20/21 Range/Units 18:30 18:30 18:30 WBC 9.5 (3.8-10.6) k/uL RBC 4.15 (3.80-5.40) m/uL Hgb 11.7 (11.4-16.0) gm/dL Hct 36.0 (34.0-46.0) % MCV 86.8 (80.0-100.0) fL MCH 28.3 (25.0-35.0) pg MCHC 32.6 (31.0-37.0) g/dL RDW 14.2 (11.5-15.5) % Plt Count 214 (150-450) k/uL MPV 7.7 Neutrophils % 67 % Lymphocytes % 24 % Monocytes % 6 % Eosinophils % 2 % Basophils % 0 % Neutrophils # 6.4 (1.3-7.7) k/uL Lymphocytes # 2.3 (1.0-4.8) k/uL Monocytes # 0.5 (0-1.0) k/uL Eosinophils # 0.2 (0-0.7) k/uL Basophils # 0.0 (0-0.2) k/uL PT 10.0 (9.0-12.0) sec INR 0.9 (<1.2) APTT 23.7 (22.0-30.0) sec D-Dimer 1.45 H (<0.60) mg/L FEU Sodium 140 (137-145) mmol/L Potassium 3.9 (3.5-5.1) mmol/L Chloride 102 (98-107) mmol/L Carbon Dioxide 27 (22-30) mmol/L Anion Gap 11 mmol/L BUN 8 (7-17) mg/dL Creatinine 0.56 (0.52-1.04) mg/dL Est GFR (CKD-EPI)AfAm >90 (>60 ml/min/1.73 sqM) Est GFR (CKD-EPI)NonAf >90 (>60 ml/min/1.73 sqM) Glucose 95 (74-99) mg/dL Plasma Lactic Acid Harshil (0.7-2.0) mmol/L Calcium 8.9 (8.4-10.2) mg/dL Magnesium 2.1 (1.6-2.3) mg/dL Total Bilirubin 0.5 (0.2-1.3) mg/dL AST 24 (14-36) U/L ALT 23 (4-34) U/L Alkaline Phosphatase 89 (38-126) U/L Troponin I (0.000-0.034) ng/mL NT-Pro-B Natriuret Pep pg/mL Total Protein 7.5 (6.3-8.2) g/dL Albumin 4.0 (3.5-5.0) g/dL Coronavirus (PCR) (Not Detectd) 08/20/21 08/20/21 08/20/21 Range/Units 18:30 18:30 18:30 WBC (3.8-10.6) k/uL RBC (3.80-5.40) m/uL Hgb (11.4-16.0) gm/dL Hct (34.0-46.0) % MCV (80.0-100.0) fL MCH (25.0-35.0) pg MCHC (31.0-37.0) g/dL RDW (11.5-15.5) % Plt Count (150-450) k/uL MPV Neutrophils % % Lymphocytes % % Monocytes % % Eosinophils % % Basophils % % Neutrophils # (1.3-7.7) k/uL Lymphocytes # (1.0-4.8) k/uL Monocytes # (0-1.0) k/uL Eosinophils # (0-0.7) k/uL Basophils # (0-0.2) k/uL PT (9.0-12.0) sec INR (<1.2) APTT (22.0-30.0) sec D-Dimer (<0.60) mg/L FEU Sodium (137-145) mmol/L Potassium (3.5-5.1) mmol/L Chloride (98-107) mmol/L Carbon Dioxide (22-30) mmol/L Anion Gap mmol/L BUN (7-17) mg/dL Creatinine (0.52-1.04) mg/dL Est GFR (CKD-EPI)AfAm (>60 ml/min/1.73 sqM) Est GFR (CKD-EPI)NonAf (>60 ml/min/1.73 sqM) Glucose (74-99) mg/dL Plasma Lactic Acid Harshil 1.2 (0.7-2.0) mmol/L Calcium (8.4-10.2) mg/dL Magnesium (1.6-2.3) mg/dL Total Bilirubin (0.2-1.3) mg/dL AST (14-36) U/L ALT (4-34) U/L Alkaline Phosphatase (38-126) U/L Troponin I <0.012 (0.000-0.034) ng/mL NT-Pro-B Natriuret Pep 226 pg/mL Total Protein (6.3-8.2) g/dL Albumin (3.5-5.0) g/dL Coronavirus (PCR) (Not Detectd) 08/20/21 Range/Units 18:30 WBC (3.8-10.6) k/uL RBC (3.80-5.40) m/uL Hgb (11.4-16.0) gm/dL Hct (34.0-46.0) % MCV (80.0-100.0) fL MCH (25.0-35.0) pg MCHC (31.0-37.0) g/dL RDW (11.5-15.5) % Plt Count (150-450) k/uL MPV Neutrophils % % Lymphocytes % % Monocytes % % Eosinophils % % Basophils % % Neutrophils # (1.3-7.7) k/uL Lymphocytes # (1.0-4.8) k/uL Monocytes # (0-1.0) k/uL Eosinophils # (0-0.7) k/uL Basophils # (0-0.2) k/uL PT (9.0-12.0) sec INR (<1.2) APTT (22.0-30.0) sec D-Dimer (<0.60) mg/L FEU Sodium (137-145) mmol/L Potassium (3.5-5.1) mmol/L Chloride (98-107) mmol/L Carbon Dioxide (22-30) mmol/L Anion Gap mmol/L BUN (7-17) mg/dL Creatinine (0.52-1.04) mg/dL Est GFR (CKD-EPI)AfAm (>60 ml/min/1.73 sqM) Est GFR (CKD-EPI)NonAf (>60 ml/min/1.73 sqM) Glucose (74-99) mg/dL Plasma Lactic Acid Harshil (0.7-2.0) mmol/L Calcium (8.4-10.2) mg/dL Magnesium (1.6-2.3) mg/dL Total Bilirubin (0.2-1.3) mg/dL AST (14-36) U/L ALT (4-34) U/L Alkaline Phosphatase (38-126) U/L Troponin I (0.000-0.034) ng/mL NT-Pro-B Natriuret Pep pg/mL Total Protein (6.3-8.2) g/dL Albumin (3.5-5.0) g/dL Coronavirus (PCR) Not Detected (Not Detectd) - EKG Data -: EKG Interpreted by Me EKG shows normal: sinus rhythm, axis, intervals, ST-T waves Rate: normal EKG Comments: Normal sinus rhythm of 90 NH interval 160 QRS, 86 QT/QTC 384/[address]-t wave changes - Radiology Data Radiology results: report reviewed (Imaging reviewed no evidence of acute findings some increased markings seen on CAT scan no blood clots seen.), image reviewed Disposition Clinical Impression: Acute bronchitis Disposition: HOME SELF-CARE Condition: Good Instructions (If sedation given, give patient instructions): Acute Bronchitis (ED) Prescriptions: predniSONE [Deltasone] 20 mg PO BID #10 tab Benzonatate [Tessalon Perles] 100 mg PO TID #21 cap Azithromycin [Zithromax Z-pack (6 tabs)] 250 mg PO DIRECTED 5 Days #6 tab Is patient prescribed a controlled substance at d/c from ED?: No Referrals: Delia Valero MD [Primary Care Provider] - 1-2 days
[2021-08-20 18:55] LABS: Basophils % (A) 0 %; Eosinophils # (A) 0.2 k/uL (0-0.7); Eosinophils % (A) 2 %; HGB 11.7 gm/dL (11.4-16.0); Lymphocytes # (A) 2.3 k/uL (1.0-4.8); Lymphocytes % (A) 24 %; MCH 28.3 pg (25.0-35.0); MCHC 32.6 g/dL (31.0-37.0); MCV 86.8 fL (80.0-100.0); Mean Platelet Volume 7.7; Monocytes # (A) 0.5 k/uL (0-1.0); Monocytes % (A) 6 %; Neutrophils # (A) 6.4 k/uL (1.3-7.7); Neutrophils % (A) 67 %; Platelet Count 214 k/uL (150-450); RBC 4.15 m/uL (3.80-5.40); RDW 14.2 % (11.5-15.5); WBC 9.5 k/uL (3.8-10.6)
--- NOTE | 2021-08-20 18:58 | XR ---
EXAMINATION TYPE: XR chest 2V DATE OF EXAM: 08/20/2021 COMPARISON: 08/06/2020 HISTORY: Cough and congestion TECHNIQUE: 2 views FINDINGS: Heart and mediastinum are normal. Lungs are clear. Diaphragm is normal. Bony thorax is inta ct. IMPRESSION: Normal chest. No adverse change compared to old exam.
[2021-08-20 19:05] LABS: ALT 23 U/L (4-34); AST 24 U/L (14-36); African American GFR (CKD) >90 (>60 ml/min/1.73 sqM); Alkaline Phosphatase 89 U/L (38-126); Anion Gap 11 mmol/L; Blood Urea Nitrogen 8 mg/dL (7-17); Calcium 8.9 mg/dL (8.4-10.2); Carbon Dioxide 27 mmol/L (22-30); Chloride 102 mmol/L (98-107); Glucose 95 mg/dL (74-99); Magnesium 2.1 mg/dL (1.6-2.3); Non-African American GFR(CKD) >90 (>60 ml/min/1.73 sqM); Potassium 3.9 mmol/L (3.5-5.1); Sodium 140 mmol/L (137-145); Total Bilirubin 0.5 mg/dL (0.2-1.3); Total Protein 7.5 g/dL (6.3-8.2)
[2021-08-20 19:15] LABS: INR 0.9 (<1.2); Partial Thromboplastin Time 23.7 sec (22.0-30.0)
--- NOTE | 2021-08-20 20:15 | CT ---
EXAMINATION TYPE: CT angio chest DATE OF EXAM: 08/20/2021 COMPARISON: CT chest 05/25/2011 HISTORY: PE suspected, elevated d-dimer, chest pain. CT DLP: 903.6 mGycm Automated exposure control for dose reduction was used. CONTRAST: Performed with IV Contrast, patient injected with 100 mL of Isovue 370. There are 3-D post processed images. There is some minimal subsegmental atelectasis in the posterior lung khan. Heart appears normal. Th ere is no pericardial effusion. There is no pleural effusion. There is no mediastinal adenopathy. There are a few paratracheal lymph nodes up to 1.5 cm. There are no hilar masses. There are some bronchial lymph nodes up to 1 cm. Thoracic spine is intact. Sternum i s intact. IMPRESSION: No evidence of pulmonary embolism. Minimal posterior pulmonary interstitial density. No suspicious pu lmonary mass. No overall adverse change compared to old exam.
[2021-08-20] MEDS ORDERED: predniSONE 50 MG TAB PO STA (20:32)
[2021-08-20] MEDS ORDERED: AZITHROMYCIN 500 MG TAB PO STA (20:32)
[2021-08-20 21:00] VITALS: BP 119/79; PULSE 91; RESP 20; TEMP 98.4
== END 2021-08-20 20:52 | disposition home or self-care (01) ==
LOC: EC 17:56
DX: J20.9 Acute bronchitis, unspecified (principal); K21.9 Gastro-esophageal reflux disease without esophagitis; F41.9 Anxiety disorder, unspecified; Z79.84 Long term (current) use of oral hypoglycemic drugs; Z88.0 Allergy status to penicillin; Z87.442 Personal history of urinary calculi; Z90.49 Acquired absence of other specified parts of digestive tract; Z90.710 Acquired absence of both cervix and uterus; Z20.822 Contact with and (suspected) exposure to COVID-19
CPT/HCPCS: 99285; 96360; 96361; 36415; 93005; 85379; 83880; 80053; 83605; 83735; 84484; 85025; 85610; 85730; 87040; 83036; 87635; 71046; 71275; J7512; Q9967

== ENCOUNTER 2021-12-02 23:18 | Emergency (ER) | payer BC ==
--- NOTE | 2021-12-02 23:50 | ED ---
Fall HPI - General Chief Complaint: Fall Stated Complaint: Fall, back pain Time Seen by Provider: 12/02/21 23:42 Source: patient, EMS, RN notes reviewed, old records reviewed Mode of arrival: EMS Limitations: no limitations - History of Present Illness Initial Comments: This is a 51-year-old female to the emergency department for evaluation. Patient has a significant fall, landed is otherwise, patient has severe pain in the right area right great the patient is unable to ambulate. Denies any other significant trauma or injury. Patient is having difficulty with ambulation. Patient has no fevers no loss of bowel or bladder no nausea vomiting. No abdominal pain. Pain is in the right side area right upper back area pelvis area. MD Complaint: fall -: hour(s) Fall From: standing When Fall Occurred: 1-3 hours [employer] Fall Witnessed: yes, by family, yes, by bystander Place Fall Occurred: home Loss of Consciousness: none Prolonged Down Time?: no Symptoms Prior to Fall: none Location: back Severity: severe Severity scale (1-10): 10 Quality: sharp, stabbing Context: tripped/slipped Associated Symptoms: denies - Related Data Home Medications Medication Instructions Recorded Confirmed Citalopram Hydrobromide [CeleXA] 20 mg PO HS 09/05/17 08/20/21 metFORMIN HCL [Glucophage] 500 mg PO BID-W/MEALS 08/20/21 08/20/21 Previous Rx's Medication Instructions Recorded Azithromycin [Zithromax Z-pack (6 250 mg PO DIRECTED 5 Days #6 tab 08/20/21 tabs)] Benzonatate [Tessalon Perles] 100 mg PO TID #21 cap 08/20/21 predniSONE [Deltasone] 20 mg PO BID #10 tab 08/20/21 Allergies Allergy/AdvReac Type Severity Reaction Status Date / Time amoxicillin Allergy Anaphylaxis Verified 08/20/21 18:46 fluticasone propionate Allergy Rash/Hives Verified 08/20/21 18:46 [From Advair Diskus] salmeterol xinafoate Allergy Rash/Hives Verified 08/20/21 18:46 [From Advair Diskus] albuterol sulfate AdvReac Passed Out Verified 08/20/21 18:46 [From Ventolin HFA] Review of Systems ROS Statement: Those systems with pertinent positive or pertinent negative responses have been documented in the HPI. ROS Other: All systems not noted in ROS Statement are negative. Past Medical History Past Medical History: GERD/Reflux Additional Past Medical History / Comment(s): kidney stones, bronchitis. History of Any Multi-Drug Resistant Organisms: None Reported Past Surgical History: Appendectomy, Hysterectomy, Tonsillectomy Additional Past Surgical History / Comment(s): partial hysterectomy Past Anesthesia/Blood Transfusion Reactions: No Reported Reaction Past Psychological History: Anxiety Smoking Status: Never smoker Past Alcohol Use History: Occasional Past Drug Use History: None Reported - Past Family History Father Family Medical History: No Reported History General Exam General appearance: alert, in no apparent distress Head exam: Present: atraumatic, normocephalic, normal inspection Eye exam: Present: normal appearance, PERRL, EOMI. Absent: scleral icterus, con junctival injection, periorbital swelling ENT exam: Present: normal exam, mucous membranes moist Neck exam: Present: normal inspection. Absent: tenderness, meningismus, lymphadenopathy Respiratory exam: Present: normal lung sounds bilaterally. Absent: respiratory distress, wheezes, rales, rhonchi, stridor Cardiovascular Exam: Present: regular rate, normal rhythm, normal heart sounds. Absent: systolic murmur, diastolic murmur, rubs, gallop, clicks GI/Abdominal exam: Present: soft, normal bowel sounds. Absent: distended, tenderness, guarding, rebound, rigid Extremities exam: Present: normal inspection, full ROM, normal capillary refill. Absent: tenderness, pedal edema, joint swelling, calf tenderness Back exam: Present: normal inspection Neurological exam: Present: alert, oriented X3, CN II-XII intact Psychiatric exam: Present: normal affect, normal mood Skin exam: Present: warm, dry, intact, normal color. Absent: rash Course Vital Signs 12/02/21 12/03/21 12/03/21 23:24 02:54 04:00 Temperature 98.1 F Pulse Rate 95 93 88 Respiratory 18 18 14 Rate Blood Pressure 145/67 126/70 114/91 O2 Sat by Pulse 95 95 95 Oximetry - Reevaluation(s) Reevaluation #1: 12/03/21 04:36 Medical record is reviewed Reevaluation #2: 12/03/21 04:36 Patient is having significantly difficult to control pain here in the ER Reevaluation #3: 12/03/21 04:36 Patient informed results and questions answered Reevaluation #4: 12/03/21 04:54 Patient finally is able to ambulate Medical Decision Making - Medical Decision Making 51 female to the emergency department for evaluation of severe back pain after fall. Pain is now fairly well controlled, still with pain. Patient given pain medication can be discharged home - Lab Data Result diagrams: 12/03/21 00:16 12/03/21 00:16 Lab Results 12/03/21 12/03/21 12/03/21 Range/Units 00:16 00:16 00:16 WBC 10.5 (3.8-10.6) k/uL RBC 4.14 (3.80-5.40) m/uL Hgb 12.2 (11.4-16.0) gm/dL Hct 36.4 (34.0-46.0) % MCV 87.9 (80.0-100.0) fL MCH 29.4 (25.0-35.0) pg MCHC 33.4 (31.0-37.0) g/dL RDW 15.1 (11.5-15.5) % Plt Count 216 (150-450) k/uL MPV 8.0 Neutrophils % 68 % Lymphocytes % 24 % Monocytes % 5 % Eosinophils % 1 % Basophils % 1 % Neutrophils # 7.1 (1.3-7.7) k/uL Lymphocytes # 2.5 (1.0-4.8) k/uL Monocytes # 0.5 (0-1.0) k/uL Eosinophils # 0.2 (0-0.7) k/uL Basophils # 0.1 (0-0.2) k/uL PT 10.0 (9.0-12.0) sec INR 0.9 (<1.2) APTT 24.0 (22.0-30.0) sec Sodium 139 (137-145) mmol/L Potassium 3.7 (3.5-5.1) mmol/L Chloride 105 (98-107) mmol/L Carbon Dioxide 23 (22-30) mmol/L Anion Gap 11 mmol/L BUN 14 (7-17) mg/dL Creatinine 0.60 (0.52-1.04) mg/dL Est GFR (CKD-EPI)AfAm >90 (>60 ml/min/1.73 sqM) Est GFR (CKD-EPI)NonAf >90 (>60 ml/min/1.73 sqM) Glucose 169 H (74-99) mg/dL Calcium 8.9 (8.4-10.2) mg/dL Phosphorus 4.2 (2.5-4.5) mg/dL Magnesium 2.0 (1.6-2.3) mg/dL Total Bilirubin 0.4 (0.2-1.3) mg/dL AST 28 (14-36) U/L ALT 24 (4-34) U/L Alkaline Phosphatase 81 (38-126) U/L Troponin I (0.000-0.034) ng/mL Total Protein 7.1 (6.3-8.2) g/dL Albumin 3.7 (3.5-5.0) g/dL 12/03/21 Range/Units 00:16 WBC (3.8-10.6) k/uL RBC (3.80-5.40) m/uL Hgb (11.4-16.0) gm/dL Hct (34.0-46.0) % MCV (80.0-100.0) fL MCH (25.0-35.0) pg MCHC (31.0-37.0) g/dL RDW (11.5-15.5) % Plt Count (150-450) k/uL MPV Neutrophils % % Lymphocytes % % Monocytes % % Eosinophils % % Basophils % % Neutrophils # (1.3-7.7) k/uL Lymphocytes # (1.0-4.8) k/uL Monocytes # (0-1.0) k/uL Eosinophils # (0-0.7) k/uL Basophils # (0-0.2) k/uL PT (9.0-12.0) sec INR (<1.2) APTT (22.0-30.0) sec Sodium (137-145) mmol/L Potassium (3.5-5.1) mmol/L Chloride (98-107) mmol/L Carbon Dioxide (22-30) mmol/L Anion Gap mmol/L BUN (7-17) mg/dL Creatinine (0.52-1.04) mg/dL Est GFR (CKD-EPI)AfAm (>60 ml/min/1.73 sqM) Est GFR (CKD-EPI)NonAf (>60 ml/min/1.73 sqM) Glucose (74-99) mg/dL Calcium (8.4-10.2) mg/dL Phosphorus (2.5-4.5) mg/dL Magnesium (1.6-2.3) mg/dL Total Bilirubin (0.2-1.3) mg/dL AST (14-36) U/L ALT (4-34) U/L Alkaline Phosphatase (38-126) U/L Troponin I <0.012 (0.000-0.034) ng/mL Total Protein (6.3-8.2) g/dL Albumin (3.5-5.0) g/dL - Radiology Data Radiology results: report reviewed (CT lumbosacral spine is negative for significant acute traumatic injury), image reviewed Disposition Clinical Impression: Fall, Lumbar back pain, Lumbar contusion Disposition: HOME SELF-CARE Condition: Good Instructions (If sedation given, give patient instructions): Fall Prevention for Older Adults (ED), Back Pain (ED) Is patient prescribed a controlled substance at d/c from ED?: No Referrals: Delia Valero MD [Primary Care Provider] - 1-2 days
[2021-12-03] MEDS ORDERED: MORPHINE SULFATE 4 MG/ML SYRINGE IV STA (00:04)
[2021-12-03] MEDS ORDERED: SODIUM CHLORIDE 0.9% 1,000 ML IV STA (00:04)
[2021-12-03] MEDS ORDERED: KETOROLAC 15 MG/ML 1 ML VIAL IVP STA (00:05)
[2021-12-03 00:28] LABS: Basophils # (A) 0.1 k/uL (0-0.2); Basophils % (A) 1 %; Eosinophils # (A) 0.2 k/uL (0-0.7); Eosinophils % (A) 1 %; HCT 36.4 % (34.0-46.0); HGB 12.2 gm/dL (11.4-16.0); Lymphocytes # (A) 2.5 k/uL (1.0-4.8); Lymphocytes % (A) 24 %; MCH 29.4 pg (25.0-35.0); MCHC 33.4 g/dL (31.0-37.0); MCV 87.9 fL (80.0-100.0); Monocytes # (A) 0.5 k/uL (0-1.0); Monocytes % (A) 5 %; Neutrophils # (A) 7.1 k/uL (1.3-7.7); Neutrophils % (A) 68 %; Platelet Count 216 k/uL (150-450); RBC 4.14 m/uL (3.80-5.40); RDW 15.1 % (11.5-15.5); WBC 10.5 k/uL (3.8-10.6)
[2021-12-03 00:44] LABS: INR 0.9 (<1.2)
[2021-12-03 00:53] LABS: ALT 24 U/L (4-34); AST 28 U/L (14-36); African American GFR (CKD) >90 (>60 ml/min/1.73 sqM); Albumin 3.7 g/dL (3.5-5.0); Alkaline Phosphatase 81 U/L (38-126); Anion Gap 11 mmol/L; Blood Urea Nitrogen 14 mg/dL (7-17); Calcium 8.9 mg/dL (8.4-10.2); Carbon Dioxide 23 mmol/L (22-30); Chloride 105 mmol/L (98-107); Glucose 169 mg/dL (74-99); Non-African American GFR(CKD) >90 (>60 ml/min/1.73 sqM); Phosphorus 4.2 mg/dL (2.5-4.5); Potassium 3.7 mmol/L (3.5-5.1); Sodium 139 mmol/L (137-145); Total Bilirubin 0.4 mg/dL (0.2-1.3); Total Protein 7.1 g/dL (6.3-8.2)
--- NOTE | 2021-12-03 01:23 | CT ---
EXAMINATION TYPE: CT lumbar spine wo con DATE OF EXAM: 12/03/2021 COMPARISON: 11/10/2013 HISTORY: FELL LOW BACK AND SACRUM PAIN CT DLP: 3071.8 mGycm Automated exposure control for dose reduction was used. Images obtained from the level of T10 vertebra to the S1 vertebra without contrast. Lumbar vertebra have normal alignment. Disc spaces show slight narrowing at L3-4 and L5-S1 with vacuu m disc and there is no compression fracture. There is mild spurring anteriorly in the mid and lower l umbar spine. There is no evidence of focal bone destruction. Facet joints are intact. There is no lum bar paraspinal mass. Sacroiliac joints appear intact. IMPRESSION: Minor degenerative hypertrophic changes in the lumbar spine. No fracture. No adverse change compared to old exams
--- NOTE | 2021-12-03 01:26 | CT ---
EXAMINATION TYPE: CT sacrum wo con DATE OF EXAM: 12/03/2021 COMPARISON: None HISTORY: FELL LOW BACK AND SACRUM PAIN CT DLP: 3071.8 mGycm Automated exposure control for dose reduction was used. Images obtained from the level of L5 to the tip of the coccyx with no contrast. Segments have normal alignment. No fracture seen. Posterior elements are intact. Presacral soft tissu es appear normal. No pathologic fluid collection. Sacroiliac joints appear normal. I see no bony dest ructive process. There is some degenerative disc space narrowing at L5-S1 with vacuum disc and spur f ormation. IMPRESSION: Negative CT scan of the sacrum and coccyx. No fracture.
[2021-12-03] MEDS ORDERED: HYDROmorphone 1 MG/ML 1 ML SYRINGE IVP STA ×2 (02:25→03:59)
[2021-12-03] MEDS ORDERED: ACETAMINOPHEN TAB 500 MG TAB PO STA (02:26)
[2021-12-03] MEDS ORDERED: traMADol 50 MG TAB PO STA (04:55)
[2021-12-03] MEDS ORDERED: traMADol 50 MG STARTER PACK 3 TAB BTL PO STA (04:55)
[2021-12-03] MEDS ORDERED: IBUPROFEN 600 MG STARTER PACK 4 TAB BTL PO STA (04:55)
[2021-12-03 06:08] VITALS: BP 142/84; PULSE 87; RESP 18; TEMP 98.4
== END 2021-12-03 06:08 | disposition home or self-care (01) ==
LOC: EC 23:18
DX: S30.0XXA Contusion of lower back and pelvis, initial encounter (principal); K21.9 Gastro-esophageal reflux disease without esophagitis; F41.9 Anxiety disorder, unspecified; Z79.84 Long term (current) use of oral hypoglycemic drugs; W01.0XXA Fall on same level from slipping, tripping and stumbling without subsequent striking against object, initial encounter; Y92.009 Unspecified place in unspecified non-institutional (private) residence as the place of occurrence of the external cause
CPT/HCPCS: 36415; 80053; 83735; 84100; 84484; 85025; 85610; 85730; 72131; 72192; 99284; 96374; 96375 ×2; 96376; 96361 ×5; J2270; J1170; J1885

== ENCOUNTER 2025-01-22 20:38 | Emergency (ER) | payer OTHER ==
[2025-01-22 20:43] VITALS: RESP 18
[2025-01-22 21:22] LABS: Basophils # (A) 0.02 10*3/uL (0.00-0.10); Basophils % (A) 0.2 %; Eosinophils % (A) 1.1 %; HGB 12.3 g/dL (12.0-15.0); Lymphocytes # (A) 2.98 10*3/uL (0.90-5.00); Lymphocytes % (A) 32.6 %; MCH 28.3 pg (27.0-32.0); MCHC 32.4 g/dL (32.0-37.0); MCV 87.6 fL (80.0-97.0); Mean Platelet Volume 11.1 fL (9.5-12.2); Monocytes # (A) 0.63 10*3/uL (0.20-1.00); Monocytes % (A) 6.9 %; Neutrophils # (A) 5.37 10*3/uL (1.80-7.70); Neutrophils % (A) 58.8 %; Platelet Count 190 10*3/uL (140-440); RBC 4.34 10*6/uL (4.10-5.20); RDW 14.5 % (11.5-14.5); WBC 9.14 10*3/uL (4.50-10.00)
[2025-01-22 21:33] LABS: ALT 52 U/L (4-34); African American GFR (CKD) >90 (>60 ml/min/1.73 sqM); Albumin 4.1 g/dL (3.5-5.0); Anion Gap 10 mmol/L; Blood Urea Nitrogen 12 mg/dL (7-17); Calcium 9.7 mg/dL (8.4-10.2); Carbon Dioxide 24 mmol/L (22-30); Chloride 103 mmol/L (98-107); Glucose 233 mg/dL (74-99); Non-African American GFR(CKD) >90 (>60 ml/min/1.73 sqM); Sodium 137 mmol/L (137-145); Total Bilirubin 0.6 mg/dL (0.2-1.3); Total Protein 7.5 g/dL (6.3-8.2)
[2025-01-22 21:34] LABS: Potassium 4.3 mmol/L (3.5-5.1)
[2025-01-22 21:35] LABS: AST 54 U/L (14-36); Alkaline Phosphatase 80 U/L (38-126); Magnesium 1.9 mg/dL (1.6-2.3)
[2025-01-22 21:36] LABS: Partial Thromboplastin Time 23.1 sec (22.0-30.0); Prothrombin Time 10.6 sec (10.0-12.5)
--- NOTE | 2025-01-22 21:38 | XR ---
EXAMINATION TYPE: XR chest 2V DATE OF EXAM: 01/22/2025 CLINICAL INDICATION: Female, 55 years old with history of Chest Pain, TECHNIQUE: Frontal and lateral views of the chest are obtained. COMPARISON: CTA chest August 20, 2021 FINDINGS: There is no focal air space opacity, pleural effusion, or pneumothorax seen. The cardiac silhouette size is within normal limits. The osseous structures are intact. IMPRESSION: No acute cardiopulmonary process. [facility], , 01/22/2025 9:35 PM
--- NOTE | 2025-01-22 22:00 | ED ---
Chest Pain HPI - General Chief Complaint: Chest Pain Stated Complaint: Chest pain,L Hand Pain Time Seen by Provider: 01/22/25 21:06 Source: patient Mode of arrival: ambulatory Limitations: no limitations - History of Present Illness Initial Comments: This patient is a 55-year-old woman who presents to have evaluation of pain in the left upper chest area. She states that it had started last night and has been going on intermittently since that time. She states that the pain will come and last for maybe a couple of minutes and then it resolves. She states that maybe 5 minutes 10 minutes sometimes longer than that the pain may recur. She has not noted any exertional component. She has not noted associated symptoms. She has not noted worsening or relieving factors. MD Complaint: chest pain Onset/Timin -: hour(s) Onset: during rest Pain Location: left chest Pain Radiation: none Severity: moderate Quality: aching Consistency: intermittent Improves With: nothing Worsens With: nothing Treatments Prior to Arrival: none - Related Data Home Medications Medication Instructions Recorded Confirmed Citalopram Hydrobromide [CeleXA] 20 mg PO HS 09/05/17 08/20/21 metFORMIN HCL [Glucophage] 500 mg PO BID-W/MEALS 08/20/21 08/20/21 Previous Rx's Medication Instructions Recorded Azithromycin [Zithromax Z-pack (6 250 mg PO DIRECTED 5 Days #6 tab 08/20/21 tabs)] Benzonatate [Tessalon Perles] 100 mg PO TID #21 cap 08/20/21 predniSONE [Deltasone] 20 mg PO BID #10 tab 08/20/21 Ibuprofen [Motrin] 600 mg PO Q8HR PRN #30 tab 10/20/22 Famotidine [Pepcid] 20 mg PO BID #14 tablet 01/23/25 Allergies Allergy/AdvReac Type Severity Reaction Status Date / Time amoxicillin Allergy Anaphylaxis Verified 01/22/25 20:43 fluticasone propionate Allergy Rash/Hives Verified 01/22/25 20:43 [From Advair Diskus] salmeterol xinafoate Allergy Rash/Hives Verified 01/22/25 20:43 [From Advair Diskus] albuterol sulfate AdvReac Passed Out Verified 01/22/25 20:43 [From Ventolin HFA] Review of Systems ROS Statement: Those systems with pertinent positive or pertinent negative responses have been documented in the HPI. ROS Other: All systems not noted in ROS Statement are negative. Constitutional: Denies: fever, chills Respiratory: Denies: cough, dyspnea, hemoptysis Cardiovascular: Reports: as per HPI, chest pain. Denies: palpitations, dyspnea on exertion, edema, syncope Gastrointestinal: Denies: abdominal pain, nausea, vomiting Genitourinary: Denies: dysuria, hematuria Musculoskeletal: Denies: back pain Skin: Denies: rash Neurological: Denies: headache, weakness, numbness EKG Findings - EKG Results: EKG: interpreted by ROSED, sinus rhythm (Rate 82 bpm), normal axis, normal QRS, normal ST/T, no acute changes - [place], Pacemaker, Normal: Normal tracing: normal tracing Past Medical History Past Medical History: Diabetes Mellitus, GERD/Reflux Additional Past Medical History / Comment(s): kidney stones, bronchitis. History of Any Multi-Drug Resistant Organisms: None Reported Past Surgical History: Appendectomy, Hysterectomy, Tonsillectomy Additional Past Surgical History / Comment(s): partial hysterectomy Past Anesthesia/Blood Transfusion Reactions: No Reported Reaction Past Psychological History: Anxiety Smoking Status: Never smoker Past Alcohol Use History: Occasional Past Drug Use History: None Reported - Past Family History Father Family Medical History: No Reported History General Exam Limitations: no limitations General appearance: alert, in no apparent distress Head exam: Present: atraumatic, normocephalic Eye exam: Present: normal appearance. Absent: scleral icterus, conjunctival injection Neck exam: Present: normal inspection, full ROM Respiratory exam: Present: normal lung sounds bilaterally. Absent: respiratory distress, wheezes, rales, rhonchi, stridor, chest wall tenderness, accessory muscle use Cardiovascular Exam: Present: regular rate, normal rhythm, normal heart sounds. Absent: systolic murmur, diastolic murmur, rubs, gallop GI/Abdominal exam: Present: soft. Absent: distended, tenderness, guarding, rebound, rigid, mass Extremities exam: Present: normal inspection, normal capillary refill. Absent: pedal edema, calf tenderness Back exam: Present: normal inspection. Absent: CVA tenderness (R), CVA tenderness (L) Neurological exam: Present: alert Skin exam: Present: warm, dry, intact, normal color. Absent: rash Course Vital Signs 01/22/25 01/22/25 01/23/25 20:41 22:43 01:20 Temperature 98.2 F 97.6 F Pulse Rate 97 82 86 Respiratory 18 18 18 Rate Blood Pressure 146/88 123/61 147/95 O2 Sat by Pulse 97 96 97 Oximetry Chest Pain MDM - MDM The patient had two-view chest x-ray that I interpreted as negative for acute infiltrate, pneumothorax, congestive heart failure The patient had CT scan of the chest that I interpreted as negative for acute infiltrate, pneumothorax, negative for pulmonary embolism Was pt. sent in by a medical professional or institution (, PA, RABIES INSPECTOR, urgent care, hospital, or fci...) When possible be specific @ -[No] Did you speak to anyone other than the patient for history (EMS, parent, family, police, friend...)? What history was obtained from this source @ -[No] Did you review nursing and triage notes (agree or disagree)? Why? @ -[I reviewed and agree with nursing and triage notes] Were old charts reviewed (outside hosp., previous admission, EMS record, old EKG, old radiological studies, urgent care reports/EKG's, fci records)? Report findings @ -[No old charts were reviewed] Differential Diagnosis (chest pain, altered mental status, abdominal pain women, abdominal pain men, vaginal bleeding, weakness, fever, dyspnea, syncope, headache, dizziness, GI bleed, back pain, seizure, CVA, palpatations, mental health, musculoskeletal)? @ -[Differential Chest Pain: Stable Angina, Unstable Angina, STEMI, NSTEMI Aortic Dissection, Pneumothorax, Musculoskeletal, Esophageal Spasm GERD, Cholecystitis, Pancreatitis, Zoster, this is not meant to be an all-inclusive list. EKG interpreted by me (3pts min.). @ -[I interpreted as above] X-rays interpreted by me (1pt min.). @ -[I interpreted as above CT interpreted by me (1pt min.). @ -[I interpreted as above U/S interpreted by me (1pt. min.). @ -[None done] What testing was considered but not performed or refused? (CT, X-rays, U/S, labs)? Why? @ -[None] What meds were considered but not given or refused? Why? @ -[None] Did you discuss the management of the patient with other professionals (professionals i.e. , PA, RABIES INSPECTOR, lab, RT, psych nurse, high school social studies tutor, extension service specialist, teacher, chief knowledge officer, embedded case manager)? Give summary @ -[No] Was smoking cessation discussed for >3mins.? @ -[No] Was critical care preformed (if so, how long)? @ -[No] Were there social determinants of health that impacted care today? How? (Homelessness, low income, unemployed, alcoholism, drug addiction, transportation, low edu. Level, literacy, decrease access to med. care, senior living, rehab)? @ -[No] Was there de-escalation of care discussed even if they declined (Discuss DNR or withdrawal of care, Hospice)? DNR status @ -[No] What co-morbidities impacted this encounter? (DM, HTN, Smoking, COPD, CAD, Cancer, CVA, ARF, Chemo, Hep., AIDS, mental health diagnosis, sleep apnea, morbid obesity)? @ -[None] Was patient admitted / discharged? Hospital course, mention meds given and route, prescriptions, significant lab abnormalities, going to OR and other pertinent info. @ -[Patient is 55-year-old woman here with chest pain. The workup is unremarkable other than mild elevation of D-dimer but there is a negative CT scan. The patient feeling better and wanting to go home. Discussed appropriate further care and follow-up as well as return parameters. Undiagnosed new problem with uncertain prognosis? @ -[No] Drug Therapy requiring intensive monitoring for toxicity (Heparin, Nitro, Insulin, Cardizem)? @ -[No] Were any procedures done? @ -[No] Diagnosis/symptom? @ -[Acute chest pain Acute, or Chronic, or Acute on Chronic? @ -[Acute Uncomplicated (without systemic symptoms) or Complicated (systemic symptoms)? @ -[default] Side effects of treatment? @ -[No] Exacerbation, Progression, or Severe Exacerbation? @ -[No] Poses a threat to life or bodily function? How? (Chest pain, [place], [place], pneumonia, PE, COPD, DKA, ARF, appy, cholecystitis, CVA, Diverticulitis, Homicidal, Suicidal, threat to staff... and all critical care pts) @ -[No] All treatments are based on ideal body weight as in ED triage Disposition Clinical Impression: Chest pain Disposition: HOME SELF-CARE Condition: Good Instructions (If sedation given, give patient instructions): Chest Pain (ED) Prescriptions: Famotidine [Pepcid] 20 mg PO BID #14 tablet Is patient prescribed a controlled substance at d/c from ED?: No Referrals: None,Stated [Primary Care Provider] - 1-2 days Jose Luis Arroyo DO [REFERRING] - 1-2 days Omero Carl MD [Medical Doctor] - 1-2 days
[2025-01-22] MEDS: MAG HYDROX/AL HYDROX/SIMETH 30 ML CUP PO STA (22:16)
--- NOTE | 2025-01-23 00:42 | CT ---
EXAM: CT Angiography Chest With Intravenous Contrast CLINICAL HISTORY: Chest Pain TECHNIQUE: Axial computed tomographic angiography images of the chest with intravenous contrast. MIPS images were created and reviewed. CTDI is 33. 5 mGy and DLP is 827.6 mGy-cm. This CT exam was performed using one or more of the following dose reduction techniques: automated exposure control, adjustment of the mA and/or kV according to patient size, and/or use of iterative reconstruction technique. MIP reconstructed images were created and reviewed. COMPARISON: Chest radiograph 01/22/2025 FINDINGS: Pulmonary arteries: Unremarkable. No pulmonary embolus. Aorta: No acute findings. No thoracic aortic aneurysm. Lungs: Unremarkable. No mass. No consolidation. Pleural space: Unremarkable. No significant effusion. No pneumothorax. Heart: Unremarkable. No cardiomegaly. No significant pericardial effusion. No evidence of RV dysfunction. Bones/joints: There are degenerative changes of the spine. No acute fracture. No dislocation. Soft tissues: Unremarkable. Lymph nodes: Unremarkable. No enlarged lymph nodes. Liver: Suspect fatty infiltration of the liver. Spleen: Incidentally noted splenomegaly. Adrenals: An indeterminate 2.3 cm right adrenal lesion is noted. IMPRESSION: 1. No pulmonary embolus. 2. An indeterminate 2.3 cm right adrenal lesion is noted. Consider a low dose, non-contrast adrenal CT or chemical-shift adrenal MRI follow-up study. 3. Incidentally noted splenomegaly. 4. Suspect fatty infiltration of the liver.
[2025-01-23 01:22] VITALS: BP 147/95; PULSE 86; TEMP 97.6
== END 2025-01-23 01:20 | disposition home or self-care (01) ==
LOC: EC 20:38
DX: R07.89 Other chest pain (principal); Z88.0 Allergy status to penicillin; Z88.8 Allergy status to other drugs, medicaments and biological substances
CPT/HCPCS: 36415; 93005; 85379; 80053; 83735; 84484; 85025; 85610; 85730; 71046; 71275; 99285; Q9967